=== PATIENT | male | born 1945 | race Caucasian/White ===

== ENCOUNTER 2018-07-18 12:22 | Inpatient (IN) ==
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
[2018-07-18 13:28] LABS: Baso % (Auto) 0.5 % (0.0-2.0); Eos # (Auto) 0.1 th/mm3 (0.0-0.4); Eos % (Auto) 0.9 % (0.0-4.0); Hematocrit 35.6 % (39.0-51.0); Hemoglobin 12.1 gm/dL (13.0-17.0); Lymph # (Auto) 1.3 th/mm3 (1.0-4.8); Lymph % (Auto) 18.2 % (9.0-44.0); Mean Corpuscular Hemoglobin 32.7 pg (27.0-34.0); Mean Corpuscular Volume 96.3 fL (80.0-100.0); Mean Platelet Volume 9.7 fL (7.0-11.0); Mono # (Auto) 0.5 th/mm3 (0.0-0.9); Mono % (Auto) 6.5 % (0.0-8.0); Neut # (Auto) 5.3 th/mm3 (1.8-7.7); Neut % (Auto) 73.9 % (16.0-70.0); Platelet Count 207 th/mm3 (150-450); Red Cell Distribution Width 14.1 % (11.6-17.2); White Blood Count 7.1 th/mm3 (4.0-11.0)
--- NOTE | 2018-07-18 13:34 | CT ---
EXAM DATE: 07/18/2018 1:27 PM EDT AGE/SEX: 89 years / Male INDICATIONS: Altered mental status. CLINICAL DATA: This is the patient's initial encounter. Patient reports that signs and symptoms have been present for 1 day and indicates a pain score of 0/10. MEDICAL/SURGICAL HISTORY: None. None. RADIATION DOSE: 56.35 CTDI (mGy) COMPARISON: No prior exams available for comparison. TECHNIQUE: CT of the head without contrast. Using automated exposure control and adjustment of the mA and/or kV according to patient size, radiation dose was kept as low as reasonably achievable to ob tain optimal diagnostic quality images. DICOM format image data is available electronically for revi ew and comparison. FINDINGS: Cerebrum: Atrophy. Periventricular low attenuation change involving both cerebral hemispheres. The v entricles are normal for age. No evidence of midline shift, mass lesion, hemorrhage or acute infarct ion. No extraaxial fluid collections are seen. Posterior Fossa: The cerebellum and brainstem are intact. The 4th ventricle is midline. The cerebe llopontine angle is unremarkable. Extracranial: The visualized portion of the orbits is intact. Skull: The calvaria is intact. No evidence of skull fracture. CONCLUSION: 1. No acute intracranial abnormality. 2. Atrophy. 3. Chronic small vessel ischemic change. . Electronically signed by: Sammy Valle MD 07/18/2018 1:33 PM EDT
[2018-07-18 13:45] LABS: Anion Gap 12 meq/L (5-15)
[2018-07-18 13:57] LABS: Alanine Aminotransferase 18 U/L (12-78); Albumin 3.8 g/dL (3.4-5.0); Alkaline Phosphatase 65 U/L (45-117); Aspartate Aminotransferase 15 U/L (15-37); Blood Urea Nitrogen 20 mg/dL (7-18); Calcium 9.2 mg/dL (8.5-10.1); Carbon Dioxide 26.5 meq/L (21.0-32.0); Chloride 106 meq/L (98-107); Glomerular Filtration Rate 55 mL/min (>89); Glucose,Random 174 mg/dL (74-106); Sodium 144 meq/L (136-145); Total Protein 7.4 g/dL (6.4-8.2)
[2018-07-18 18:43] LABS: Bilirubin,Urine Negative (Negative); Clarity,Urine Clear (Clear); Color,Urine Yellow (Yellw/Straw); Glucose,Urine (UA) Negative (Negative); Hyaline Casts,Urine 1 /lpf (0-3); Leukocyte Esterase,Urine Negative (Negative); Nitrite,Urine Negative (Negative); Specific Gravity,Urine 1.008 (1.002-1.035)
[2018-07-18 18:48] LABS: Amphetamine Screen,Urine Neg (Neg); Barbiturate Screen,Urine Neg (Neg); Cannabinoid Screen,Urine Neg (Neg); Cocaine Screen,Urine Neg (Neg)
[2018-07-18 19:05] LABS: Opiate Screen,Urine Neg (Neg)
[2018-07-18] MEDS ORDERED: Melatonin 5 MG Tablet PO PRN (21:23)
[2018-07-18] MEDS ORDERED: Aluminum/Magnesium/Simethacone Susp 30 ML UDC PO PRN (21:23)
[2018-07-19] MEDS ORDERED: SEMAGLUTIDE SQ SCH (09:00)
[2018-07-19] MEDS ORDERED: INSULIN DEGLUDEC SQ SCH (09:00)
[2018-07-19 10:25] LABS: Baso % (Auto) 0.4 % (0.0-2.0); Eos # (Auto) 0.1 th/mm3 (0.0-0.4); Eos % (Auto) 1.2 % (0.0-4.0); Hematocrit 37.6 % (39.0-51.0); Hemoglobin 12.8 gm/dL (13.0-17.0); Lymph # (Auto) 2.1 th/mm3 (1.0-4.8); Lymph % (Auto) 32.6 % (9.0-44.0); Mean Corpuscular Hemoglobin 32.7 pg (27.0-34.0); Mean Corpuscular Volume 95.9 fL (80.0-100.0); Mean Platelet Volume 9.8 fL (7.0-11.0); Mono # (Auto) 0.7 th/mm3 (0.0-0.9); Mono % (Auto) 10.5 % (0.0-8.0); Neut # (Auto) 3.6 th/mm3 (1.8-7.7); Neut % (Auto) 55.3 % (16.0-70.0); Platelet Count 213 th/mm3 (150-450); Red Blood Count 3.92 mil/mm3 (4.50-5.90); Red Cell Distribution Width 14.1 % (11.6-17.2); White Blood Count 6.4 th/mm3 (4.0-11.0)
[2018-07-19] MEDS: Carvedilol 6.25 MG Tablet PO SCH (10:27)
[2018-07-19] MEDS: TRIAMCINOLONE ACETONIDE EACH NARE SCH (10:27)
[2018-07-19 10:34] LABS: Calcium 9.9 mg/dL (8.5-10.1); Carbon Dioxide 26.4 meq/L (21.0-32.0); Potassium 3.7 meq/L (3.5-5.1)
[2018-07-19 10:38] LABS: Chol/HDL Ratio 3.11 Ratio; HDL Cholesterol 34.4 mg/dL (40.0-60.0)
[2018-07-19] MEDS ORDERED: Aluminum/Magnesium/Simethacone Susp 30 ML UDC PO PRN (11:03)
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
[2018-07-19 13:09] LABS: Hemoglobin A1c 7.9 % (4.3-6.0)
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
[2018-07-19] MEDS ORDERED: Dextrose 50% in Water 50 ML Vial IV.PUSH PRN (16:24)
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
--- NOTE | 2018-07-19 16:54 | P.DIET ---
Nutritional Evaluation Type of nutrition evaluation: initial Nutrition consult regarding: Diet Evaluation Nutrition screening: [facility] [place] Screening comments: 07/18/18 [facility] [place] Poor PO Intake Subjective Oral Diet Tolerance Assessment Indicates: Poor dentition Subjective Comments: Pt visited before dinner today. Pt is edentulous on his upper mouth and says he doesnt know where his denture is. Pt's lower mouth w/missing teeth. Pt denies any problem chewing and says, "I'm here aren't I"? Pt receptive to receiving an oral nutritional supplement and prefers chocolate flavor. Objective - Diagnosis Dementia w/Behavioral Disturbances - Objective Body Mass Index: 20.0 [place] body weight: 78.2 kg % IBW: 83 Body Weight Used for Calculations: Actual Energy Needs - Lower Range (kCal/kg): 33 Energy Needs - Upper Range (kCal/kg): 38 Lower Limit kCal/kg (kCals): 2,145 Upper Limit kCal/kg (kCals): 2,470 Lower Limit Protein Factor (Grams per Kg): 1.2 Upper Limit Protein Factor (Grams per Kg): 1.5 Lower Protein Needs (Protein): 78 Upper Protein Needs (Protein): 98 Fluid Factor (ml/kg): 33 Estimated Fluid Needs (ml): 2,145 Dietitian Reviewed in Medical Record: Current diet, Curent medications, Intake & Output, Labs, Medical history Diet Order: 1800ADA Oral Diet Intake Amount: Fair 50-75% Objective Comments: PMH Includes: Dementia, DM, CAD, s/p CABG, CVA, Dyslipidemia Meds Include: Glucophage, Lipitor, Coreg, Vasotec, Atarax, Mobic, Protonix Assessment Assessment: Pt is at nutritional risk rt/ poor po intake. PT w/o% po intake for breakfast today and 100% po for lunch. Rec 2200ADA diet. Send Glucerna Shakes TID to offer 220 kcal and 10g Protein per serving. Monitor diet tolerance. Labs reviewed. Dietitian will follow. Recommendations: 1. Rec 2200ADA diet 2. Send Glucerna Shakes TID 3. Dietitian will follow Dietitian to Monitor: Lab values, Supplement acceptance, Intake & Output, Diet tolerance, Weight change, PO Intake, Medical course
[2018-07-19] MEDS: Insulin NovoLOG Aspart Correctional Sugar Inj SQ SCH ×2 (18:39→21:46)
[2018-07-19] MEDS: Meloxicam 7.5 MG Tablet PO SCH (20:59)
[2018-07-19] MEDS: Lactic Acid (Ammonium Lactate) 12% Lotion 225 GM Bottle TOPICAL SCH (21:00)
--- NOTE | 2018-07-20 08:56 | P.TTN ---
- Patient Problems Problems: 1. Discharge planning 2. Medication compliance 3. Knowledge deficit 4. Lack of coping skills - Progress Toward Goals Provider Present: Dr. Paramjit Simmons Provider Input: Patient is new admission Psychiatric Counselors Present: Other Psychiatric Therapist Input: Tiana- Patient is new admission Group Spec/RT/OT/BLANK Present: Adamaris Leon [employer] Group Spec/RT/OT/BLANK Input: Patient is new admission - Documentation Teaching Recipient: Patient
[2018-07-20] MEDS: Insulin NovoLOG Aspart Correctional Sugar Inj SQ SCH ×4 (11:14→21:14)
[2018-07-20] MEDS: Lactic Acid (Ammonium Lactate) 12% Lotion 225 GM Bottle TOPICAL SCH ×2 (11:16→21:14)
[2018-07-20] MEDS: Carvedilol 6.25 MG Tablet PO SCH (11:16)
[2018-07-20] MEDS: TRIAMCINOLONE ACETONIDE EACH NARE SCH (11:16)
--- NOTE | 2018-07-20 17:59 | P.PNPSY ---
Subjective Remarks: Patient seen in day room with nurse Hiwot, chart reviewed, patient calm cooperative continues diffusely confused all 4 spheres. At this time no behavioral problems. For now continue treatment Review of Systems All other systems reviewed negative except as stated in HPI Mental Status Examination Appearance: Disheveled Consciousness: Alert Orientation: Person, Place (Hospital) Motor Activity: Normal gait Speech: Unremarkable Language: Other (R[place]) Fund of Knowledge: Inadequate Attention and Concentration: Inadequate Memory: Impaired Mood: Irritable, Other (Dysphoric) Affect: Irritable, Other (Dysphoric) Thought Process & Associations: Tangential (In setting of dementia) Thought Content: Bizarre thinking Hallucination Type: None Delusion Type: Paranoid Suicidal Ideation: No Suicidal Plan: No Suicidal Intention: No Homicidal Ideation: No Homicidal Plan: No Homicidal Intention: No Insight: Poor Judgment: Poor Assessment and Plan - Assessment (1) Alzheimer's disease with late onset Code(s): G30.1 - Alzheimer's disease with late onset; F02.80 - Dementia in other diseases classified elsewhere without behavioral disturbance Status: Acute (2) Dementia in other diseases classified elsewhere with behavioral disturbance Code(s): F02.81 - Dementia in other diseases classified elsewhere with behavioral disturbance Status: Acute - Plan Plan: Patient continues diffusely confused and demented, though no behavior problems noted at this time Justification for Continued Inpatient Stay: At this time patient would decompensate a place to a lower level of care Discharge Planning: To be determined
[2018-07-20] MEDS: Meloxicam 7.5 MG Tablet PO SCH (21:13)
[2018-07-21] MEDS ORDERED: Sugammadex Inj 200 MG/2 ML Vial IV.PUSH ONE (08:21)
[2018-07-21] MEDS ORDERED: Ketamine Inj 50 MG/5 ML Syringe IV.PUSH ONE (08:22)
[2018-07-21] MEDS ORDERED: fentaNYL Citrate Inj 100 MCG/2 ML Ampul ONE (11:13)
[2018-07-21] MEDS: Insulin NovoLOG Aspart Correctional Sugar Inj SQ SCH ×4 (11:14→20:59)
[2018-07-21] MEDS: Carvedilol 6.25 MG Tablet PO SCH (11:17)
[2018-07-21] MEDS: TRIAMCINOLONE ACETONIDE EACH NARE SCH (11:18)
[2018-07-21] MEDS: Lactic Acid (Ammonium Lactate) 12% Lotion 225 GM Bottle TOPICAL SCH ×2 (11:18→20:58)
--- NOTE | 2018-07-21 16:42 | P.PNPSY ---
Subjective Remarks: Reviewed electronic medical records and discussed case with staff. Follow-up was conducted in the hallway. Patient reports that the "law brought me over here". He is very agitated and abrasive with staff. He states, "I do not know why I am here, this is stupid, I do not need to be here". Mental Status Examination Appearance: Disheveled Consciousness: Alert Orientation: Person, Place (Hospital) Motor Activity: Normal gait Speech: Unremarkable Language: Other (Rambling) Fund of Knowledge: Inadequate Attention and Concentration: Inadequate Memory: Impaired Mood: Irritable, Other (Dysphoric) Affect: Irritable, Other (Dysphoric) Thought Process & Associations: Tangential (In setting of dementia) Thought Content: Bizarre thinking Hallucination Type: None Delusion Type: Paranoid Suicidal Ideation: No Suicidal Plan: No Suicidal Intention: No Homicidal Ideation: No Homicidal Plan: No Homicidal Intention: No Insight: Poor Judgment: Poor Assessment and Plan - Assessment (1) Dementia in other diseases classified elsewhere with behavioral disturbance Code(s): F02.81 - Dementia in other diseases classified elsewhere with behavioral disturbance Status: Acute - Plan Plan: Continue with current treatment plan. Patient continues to be grossly confused and irritable. Justification for Continued Inpatient Stay: Moving this patient to a less restrictive environment would likely result in decompensation.
[2018-07-21] MEDS: Meloxicam 7.5 MG Tablet PO SCH (20:59)
[2018-07-22] MEDS: Insulin NovoLOG Aspart Correctional Sugar Inj SQ SCH ×4 (08:57→22:00)
[2018-07-22] MEDS: Lactic Acid (Ammonium Lactate) 12% Lotion 225 GM Bottle TOPICAL SCH ×2 (08:59→21:00)
[2018-07-22] MEDS: Carvedilol 6.25 MG Tablet PO SCH (08:59)
[2018-07-22] MEDS: TRIAMCINOLONE ACETONIDE EACH NARE SCH (12:09)
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
[2018-07-22] MEDS: Meloxicam 7.5 MG Tablet PO SCH (20:59)
[2018-07-22] MEDS: QUEtiapine 25 MG Tablet PO SCH (20:59)
[2018-07-23] MEDS: Insulin NovoLOG Aspart Correctional Sugar Inj SQ SCH ×4 (07:47→20:47)
[2018-07-23] MEDS: Carvedilol 6.25 MG Tablet PO SCH (08:46)
[2018-07-23] MEDS: TRIAMCINOLONE ACETONIDE EACH NARE SCH (08:46)
[2018-07-23] MEDS: Lactic Acid (Ammonium Lactate) 12% Lotion 225 GM Bottle TOPICAL SCH ×2 (08:47→20:32)
--- NOTE | 2018-07-23 15:29 | P.PNPSY ---
Subjective Remarks: The patient was seen today for psychiatric reevaluation. The patient was found sitting in the jo, a little bit irritable, disorganized, he is very hard of hearing which made communication quite difficult. But he reports feeling okay, denies anhedonia, denies hopelessness, denies helplessness, he denies suicidal and homicidal ideation, he denies visual and auditory hallucinations. He has episodes of agitation and becoming loud in the unit, but he is usually Sara escalated. Compliant medications, no significant side effects. Mental Status Examination Appearance: Disheveled Consciousness: Alert Orientation: Person, Place (Hospital) Motor Activity: Normal gait Speech: Unremarkable Language: Other (Rambling) Fund of Knowledge: Inadequate Attention and Concentration: Inadequate Memory: Impaired Mood: Irritable, Other (Dysphoric) Affect: Irritable, Other (Dysphoric) Thought Process & Associations: Tangential (In setting of dementia) Thought Content: Bizarre thinking Hallucination Type: None Delusion Type: Paranoid Suicidal Ideation: No Suicidal Plan: No Suicidal Intention: No Homicidal Ideation: No Homicidal Plan: No Homicidal Intention: No Insight: Poor Judgment: Poor Assessment and Plan - Assessment (1) Alzheimer's disease with late onset Code(s): G30.1 - Alzheimer's disease with late onset; F02.80 - Dementia in other diseases classified elsewhere without behavioral disturbance Status: Acute (2) Dementia in other diseases classified elsewhere with behavioral disturbance Code(s): F02.81 - Dementia in other diseases classified elsewhere with behavioral disturbance Status: Acute - Plan Plan: Continue current psychotropic regimen. Justification for Continued Inpatient Stay: Patient is still irritable, with episodic agitation, responding adequately to psychotropics. Continue psychiatric hospitalization for stabilization
[2018-07-23] MEDS: Meloxicam 7.5 MG Tablet PO SCH (20:32)
[2018-07-23] MEDS: QUEtiapine 25 MG Tablet PO SCH (20:32)
[2018-07-24] MEDS: Insulin NovoLOG Aspart Correctional Sugar Inj SQ SCH ×4 (07:54→21:40)
[2018-07-24] MEDS: Carvedilol 6.25 MG Tablet PO SCH (09:26)
[2018-07-24] MEDS: TRIAMCINOLONE ACETONIDE EACH NARE SCH (09:27)
[2018-07-24] MEDS: Lactic Acid (Ammonium Lactate) 12% Lotion 225 GM Bottle TOPICAL SCH ×2 (09:27→21:40)
--- NOTE | 2018-07-24 11:47 | P.PNPSY ---
Subjective Remarks: Pt seen and discussed with staff. Chart reviewed. He has been agitated and argumentative with RNs during medication administration. He is irritable and angry and confused. He is easily agitated. No SI/HI Mental Status Examination Appearance: Disheveled Consciousness: Alert Orientation: Person, Place (Hospital) Motor Activity: Normal gait Speech: Unremarkable Language: Other (Rambling) Fund of Knowledge: Inadequate Attention and Concentration: Inadequate Memory: Impaired Mood: Angry, Irritable Affect: Irritable Thought Process & Associations: Tangential (In setting of dementia) Thought Content: Bizarre thinking Hallucination Type: None Delusion Type: Paranoid Suicidal Ideation: No Suicidal Plan: No Suicidal Intention: No Homicidal Ideation: No Homicidal Plan: No Homicidal Intention: No Insight: Poor Judgment: Poor Assessment and Plan - Assessment (1) Alzheimer's disease with late onset Code(s): G30.1 - Alzheimer's disease with late onset; F02.80 - Dementia in other diseases classified elsewhere without behavioral disturbance Status: Acute (2) Dementia in other diseases classified elsewhere with behavioral disturbance Code(s): F02.81 - Dementia in other diseases classified elsewhere with behavioral disturbance Status: Acute - Plan Plan: Continue current tx plan Justification for Continued Inpatient Stay: agitation
[2018-07-24] MEDS: QUEtiapine 25 MG Tablet PO SCH (21:00)
[2018-07-24] MEDS: Meloxicam 7.5 MG Tablet PO SCH (21:00)
--- NOTE | 2018-07-25 09:24 | P.PNPSY ---
Subjective Remarks: Medical record reviewed and discussed with nursing staff. PACO Mi and I met with patient in the Day Room. He is eating breakfast. He is very [place]. He is confused and unable to focus. Nursing reports no behavioral concerns . He appears to take direction and is cooperative at this time. Review of Systems All other systems reviewed negative except as stated in HPI Mental Status Examination Appearance: Disheveled Consciousness: Alert Orientation: Person, Place (Hospital) Motor Activity: Normal gait Speech: Unremarkable Language: Other (Rambling) Fund of Knowledge: Inadequate Attention and Concentration: Inadequate Memory: Impaired Mood: Angry, Irritable Affect: Irritable Thought Process & Associations: Tangential (In setting of dementia) Thought Content: Bizarre thinking Hallucination Type: None Delusion Type: Paranoid Suicidal Ideation: No Suicidal Plan: No Suicidal Intention: No Homicidal Ideation: No Homicidal Plan: No Homicidal Intention: No Insight: Poor Judgment: Poor Assessment and Plan - Assessment (1) Alzheimer's disease with late onset Code(s): G30.1 - Alzheimer's disease with late onset; F02.80 - Dementia in other diseases classified elsewhere without behavioral disturbance Status: Acute (2) Dementia in other diseases classified elsewhere with behavioral disturbance Code(s): F02.81 - Dementia in other diseases classified elsewhere with behavioral disturbance Status: Acute - Plan Plan: Continue current tx plan Justification for Continued Inpatient Stay: Moving patient to a less restrictive environment may result in his decompensation.
[2018-07-25] MEDS: Insulin NovoLOG Aspart Correctional Sugar Inj SQ SCH ×4 (11:40→20:46)
[2018-07-25] MEDS: Lactic Acid (Ammonium Lactate) 12% Lotion 225 GM Bottle TOPICAL SCH ×2 (11:40→20:14)
[2018-07-25] MEDS: Carvedilol 6.25 MG Tablet PO SCH (11:40)
[2018-07-25] MEDS: TRIAMCINOLONE ACETONIDE EACH NARE SCH (11:40)
[2018-07-25] MEDS: Meloxicam 7.5 MG Tablet PO SCH (20:14)
[2018-07-25] MEDS: QUEtiapine 25 MG Tablet PO SCH (20:14)
[2018-07-26] MEDS: Insulin NovoLOG Aspart Correctional Sugar Inj SQ SCH ×4 (09:38→21:29)
[2018-07-26] MEDS: Lactic Acid (Ammonium Lactate) 12% Lotion 225 GM Bottle TOPICAL SCH ×2 (09:39→21:02)
[2018-07-26] MEDS: TRIAMCINOLONE ACETONIDE EACH NARE SCH (09:39)
[2018-07-26] MEDS: Carvedilol 6.25 MG Tablet PO SCH (09:39)
--- NOTE | 2018-07-26 12:42 | P.PNPSY ---
Subjective Remarks: Reviewed electronic medical records and discussed case with staff. Follow-up was conducted in the day room. Staff reports that patient is confused and would still like to go home. His blood glucose levels improved today. Been compliant with his Seroquel. He reports that he has been sleeping good and his he has had a good appetite. He states "I wish I was home with my ". He also claims to "always be in a good mood". Review of Systems All other systems reviewed negative except as stated in HPI Mental Status Examination Appearance: Disheveled Consciousness: Alert Orientation: Person, Place (Hospital) Motor Activity: Normal gait Speech: Unremarkable Language: Other (Rambling) Fund of Knowledge: Inadequate Attention and Concentration: Inadequate Memory: Impaired Mood: Angry, Irritable Affect: Irritable Thought Process & Associations: Tangential (In setting of dementia) Thought Content: Bizarre thinking Hallucination Type: None Delusion Type: Paranoid Suicidal Ideation: No Suicidal Plan: No Suicidal Intention: No Homicidal Ideation: No Homicidal Plan: No Homicidal Intention: No Insight: Poor Judgment: Poor Assessment and Plan - Assessment (1) Dementia in other diseases classified elsewhere with behavioral disturbance Code(s): F02.81 - Dementia in other diseases classified elsewhere with behavioral disturbance Status: Acute - Plan Plan: Patient will be reevaluated Thursday by the attending psychiatrist. Continue with current treatment plan. Justification for Continued Inpatient Stay: Moving this patient to a less restrictive environment would likely result in decompensation.
--- NOTE | 2018-07-26 14:45 | P.DIET ---
Nutritional Evaluation Type of nutrition evaluation: follow-up Nutrition consult regarding: Diet Evaluation [place] [facility] [place] [facility] [place] Intake Subjective Oral Diet Tolerance Assessment Indicates: Poor dentition Subjective Comments: Pt visited during lunch today. Food preferences updated. Brought forward from prevoius note: Pt visited before dinner today. Pt is edentulous on his upper mouth and says he doesnt know where his denture is. Pt' s lower mouth w/missing teeth. Pt denies any problem chewing and says, "I'm here aren't I"? Pt receptive to receiving an oral nutritional supplement and prefers chocolate flavor. Objective - Diagnosis Dementia w/Behavioral Disturbances - Objective [place] body weight: 78.2 kg % IBW: 83 Body Weight Used for Calculations: Actual Energy Needs - Lower Range (kCal/kg): 33 Energy Needs - Upper Range (kCal/kg): 38 Lower Limit kCal/kg (kCals): 2,145 Upper Limit kCal/kg (kCals): 2,470 Lower Limit Protein Factor (Grams per Kg): 1.2 Upper Limit Protein Factor (Grams per Kg): 1.5 Lower Protein Needs (Protein): 78 Upper Protein Needs (Protein): 98 Fluid Factor (ml/kg): 33 Estimated Fluid Needs (ml): 2,145 Dietitian Reviewed in Medical Record: Current diet, Curent medications, Intake & Output, Labs, Medical history Diet Order: 1800ADA Oral Diet Intake Amount: Good 75-90% Objective Comments: PMH Includes: Dementia, DM, CAD, s/p CABG, CVA, Dyslipidemia POC Glucose 197 Meds Include: Glucophage, Novolog SSI, Lipitor, Coreg, Catapres, Vasotec, Atarax , Mobic, Protonix, Seroquel Feeding - Current PO Supplement Current Supplement: Glucerna Shake Current Frequency of Supplement: Three times a day Current kCals Provided by Supplement: 220 Current Protein Provided by Supplement: 10 Assessment Assessment: Nutrition Follow-[place] [facility] po intake. Pt tolerating diet w/Adequate PO intake 50% or greater for meals. Rec 2200ADA diet. Continue Glucerna Shakes TID. Labs reviewed-monitor glucose. Wt changes noted. Dietitian following. Recommendations: 1. Rec 2200ADA diet 2. Continue Glucerna Shakes TID 3. Dietitian will follow Dietitian to Monitor: Lab values, Supplement acceptance, Intake & Output, Weight change, PO Intake, Medical course
[2018-07-26] MEDS: QUEtiapine 25 MG Tablet PO SCH (20:58)
[2018-07-26] MEDS: Meloxicam 7.5 MG Tablet PO SCH (20:59)
--- NOTE | 2018-07-27 03:03 | XR ---
EXAM DATE: 07/27/2018 2:57 AM EDT AGE/SEX: 72 years / Male INDICATIONS: Trauma. Patient fell in hir room tonight. CLINICAL DATA: This is the patient's initial encounter. Patient reports that signs and symptoms have been present for 1 day and indicates a pain score of Nonresponsive. MEDICAL/SURGICAL HISTORY: Non-responsive. Non-responsive. COMPARISON: No prior exams available for comparison. FINDINGS: 2 views of left hip. Bone alignment within normal limits. No evidence of fracture. No evidence of indy nt narrowing. Diffuse arterial calcification. CONCLUSION: No evidence of fracture. Electronically signed by: Wes Joe MD 07/27/2018 3:02 AM EDT
--- NOTE | 2018-07-27 03:04 | XR ---
EXAM DATE: 07/27/2018 2:58 AM EDT AGE/SEX: 72 years / Male INDICATIONS: Trauma. CLINICAL DATA: This is the patient's initial encounter. Patient reports that signs and symptoms have been present for 1 day and indicates a pain score of Nonresponsive. MEDICAL/SURGICAL HISTORY: None. None. COMPARISON: [facility] [place], HIP LEFT 2V, 07/27/2018. . FINDINGS: 2 views right hip. Minimal osteophytes. Alignment within normal limits. No evidence fracture. No evid ence of joint narrowing. Diffuse arterial calcification. CONCLUSION: No evidence of fracture. Electronically signed by: Wes Joe MD 07/27/2018 3:03 AM EDT
[2018-07-27] MEDS: Insulin NovoLOG Aspart Correctional Sugar Inj SQ SCH ×4 (08:32→21:00)
[2018-07-27] MEDS: Carvedilol 6.25 MG Tablet PO SCH ×3 (08:36→20:51)
[2018-07-27] MEDS: TRIAMCINOLONE ACETONIDE EACH NARE SCH (08:36)
[2018-07-27] MEDS: Lactic Acid (Ammonium Lactate) 12% Lotion 225 GM Bottle TOPICAL SCH ×2 (08:38→20:35)
--- NOTE | 2018-07-27 09:12 | CT ---
EXAM DATE: 07/27/2018 9:08 AM EDT AGE/SEX: 72 years / Male INDICATIONS: Trauma. Fell again this morning. Head injury. Multiple falls recently. CLINICAL DATA: This is the patient's subsequent encounter. Patient reports that signs and symptoms h ave been present for 1 day and indicates a pain score of 0/10. MEDICAL/SURGICAL HISTORY: Cerebrovascular disease. Dementia. Diabetes. CABG. RADIATION DOSE: 56.35 CTDI (mGy) COMPARISON: [facility] [place], [place] HEAD W/O CONTRAST, 07/18/2018. . TECHNIQUE: CT of the head without contrast. Using automated exposure control and adjustment of the mA and/or kV according to patient size, radiation dose was kept as low as reasonably achievable to ob tain optimal diagnostic quality images. DICOM format image data is available electronically for revi ew and comparison. FINDINGS: Cerebrum: The ventricles are normal for age. No evidence of midline shift, mass lesion, hemorrhage or acute infarction. No extraaxial fluid collections are seen. Posterior Fossa: The cerebellum and brainstem are intact. The 4th ventricle is midline. The cerebe llopontine angle is unremarkable. Extracranial: The visualized portion of the orbits is intact. Skull: The calvaria is intact. No evidence of skull fracture. CONCLUSION: 1. No acute intracranial abnormalities. . Electronically signed by: Giuseppe Schilling MD 07/27/2018 9:11 AM EDT
--- NOTE | 2018-07-27 09:22 | XR ---
EXAM DATE: 07/27/2018 9:15 AM EDT AGE/SEX: 72 years / Male INDICATIONS: Right shoulder pain. Patient fell. CLINICAL DATA: This is the patient's subsequent encounter. Patient reports that signs and symptoms h ave been present for 2 days and indicates a pain score of 4/10. MEDICAL/SURGICAL HISTORY: . Coronary artery disease. Cerebral vascular accident. Dementia. Diab etes. Dyslipidemia. CABG. COMPARISON: No prior exams available for comparison. FINDINGS: Advanced osteoarthritis of the right shoulder joint. Moderate osteoarthritis of the AC joint. Probabl e loose bodies present in the inferior shoulder joint. There is deformity of the humeral neck probably from a remote fracture. No acute fracture line is see n. CONCLUSION: Humeral neck deformity presumably from a remote fracture. However cannot completely exclude acute fra cture. If clinical findings suggest fracture would recommend further evaluation with computed tomogra phy. Electronically signed by: Giuseppe Schilling MD 07/27/2018 9:20 AM EDT
--- NOTE | 2018-07-27 10:22 | P.PN ---
Subjective Interval history: 72 years old male [facility] reconsulted for management of DM- elevated readings- BS reviewed- 259, 278, 360 patient is seen - awake and alert, hard of hearing, oriented to person and "[place]" no complains of dizziness or headaches, or chest pains he is up and ambulating, very interactive, no dizziness states sugars will be better - if "they give me the right food Physical Exam Vital signs: Vital Signs 07/26/18 18:25 07/27/18 04:19 07/27/18 04:30 Temperature 98.1 F 97.6 F 97.2 F L Pulse Rate 95 H 100 H 92 H Respiratory Rate 18 20 20 Blood Pressure 141/78 H 174/87 H 118/84 Pulse Oximetry 99 96 93 L 07/27/18 05:12 07/27/18 06:12 07/27/18 08:06 Temperature 97.2 F L Pulse Rate 91 H 104 H 87 Respiratory Rate 18 20 16 Blood Pressure 137/73 142/90 H 159/108 H Pulse Oximetry 96 94 L 07/27/18 08:44 Temperature Pulse Rate 113 H Respiratory Rate 16 Blood Pressure 109/63 Pulse Oximetry 98 Intake & Output 07/26/18 07/27/18 07/27/18 18:59 06:59 18:59 Intake Total 840 / 840 Balance 840 / 840 Intake: Oral 840 / 840 Other: # Voids 3 Date of Last Bowel Movement 07/22/18 Narrative: GENERAL: WDWN male patient, Awake and alert. Oriented to self only. "I'm in [place]" cooperative on exam today speech clear, Hard of hearing Warm and dry. Bilateral LE venous stasis changes with dry flaky skin. Atraumatic. Normocephalic. Pupils equal and round. No scleral icterus. No injection or drainage. No nasal bleeding or discharge. Mucous membranes pink and moist. neck supple CARDIOVASCULAR: irregularly irregular rhythm on exam, HR- low 100s, No murmur appreciated. RESPIRATORY: No accessory muscle use. Clear to auscultation. Breath sounds equal bilaterally. GASTROINTESTINAL: Abdomen soft, non-tender, nondistended. Hepatic and splenic margins not palpable. MUSCULOSKELETAL: Extremities without clubbing, cyanosis, or edema. No obvious deformities. NEUROLOGICAL: Awake and alert. No obvious cranial nerve deficits. Motor grossly within normal limits. Able to move all extremities spontaneously. Normal speech. gait steady PSYCHIATRIC: Calm and cooperative; insight and judgment poor. Results - Labs CBC & Chem 7: 07/19/18 09:04 07/19/18 09:04 Laboratory Results - last 24 hr 07/26/18 07/26/18 07/27/18 16:46 19:53 06:16 POC Glucose 278 H 289 H 289 H - Imaging Impressions Head CT 07/27/18 00:00 CONCLUSION: 1. No acute intracranial abnormalities. . Shoulder X-Ray 07/27/18 00:00 CONCLUSION: Humeral neck deformity presumably from a remote fracture. However cannot completely exclude acute fracture. If clinical findings suggest fracture would recommend further evaluation with computed tomography. Hip X-Ray 07/27/18 02:31 CONCLUSION: No evidence of fracture. Hip X-Ray 07/27/18 02:31 CONCLUSION: No evidence of fracture. Assessment and Plan - Plan Nasim Friedman patient with dementia, hx of CVAs, CAD s/p CABG, DM, dyslipidemia and diabetes admitted to inpatient psychiatry under [place] Act: [facility] reconsulted for DM managment Dementia with behavioral disturbance CT Head neg for acute intracranial process -Management per psychiatric team -fall precautions- up and ambulaing- steadily, cooperative on exam - very hard of hearing though -PT/OT eval/tx Diabetes Mellitus, type 2 insulin requiring (as OP on Tresiba + Metformin) HgbA1c 7.9 -heart healthy diabetic diet -Continued on home Metformin 1000mg po BID -Patient on Tresiba 14u daily - not available here -will start him on Insulin 70/30 8 units bid and record -accuchecks and ISS - get dietitian consult for recommendation - Irregularly irregular rhythm- on exam - on exam sounds like in ATRIAL FIBRILLATION on exam Hypertension, chronic CAD s/p CABG - get a 12 lead EKG now - = patient has no cardiac complaints -Continue patient on home medications Coreg 6.25mg daily- increase to bid - continue Vasotec 5mg po daily -Continue on ASA daily - consider adding newer OAC if confirmed a fib - -Clonidine prn with parameters Hyperlipidemia -Continue patient statin therapy daily Hx of CVAs -Continue on Aspirin daily Bilateral shoulder pain, chronic- no complains Probable bilateral shoulder OA -Continue on Mobic 7.5mg daily GERD -PPI DVT prophylaxis -patient is ambulatory [facility] will continue to ff patient and ff blood sugar and adjust regimen Code Status: Full Discussed Condition With: patient, nursing staff
--- NOTE | 2018-07-27 11:44 | P.PNPSY ---
Subjective Remarks: Patient seen and examined with nurse in coverage for Dr. Simmons. Chart reviewed. Case discussed with nursing staff. I was notified early this morning is the physician on-call that the patient had taken a fall and may have hit his head and possibly right shoulder. I ordered stat head and shoulder imaging and also requested PT reevaluate the patient as I was told that he had fallen overnight as well and also requested further hospitalist consultation as nurse reported patient felt dizzy when hyperglycemic. Patient has now been placed with a walker by PT and his neuro checks have been unremarkable per RN. I find the patient in bed. He is hard of hearing, limiting the interview. He denies any complaints of pain. He is oriented to person and [place] only. No reported medication side effects. No other physical complaints. Vital Signs Temp Pulse Resp BP Pulse Ox 07/27/18 09:35 99 H 16 110/62 98 07/27/18 08:44 113 H 16 109/63 98 07/27/18 08:06 87 16 159/108 H 07/27/18 06:12 104 H 20 142/90 H 94 L 07/27/18 05:12 97.2 F L 91 H 18 137/73 96 07/27/18 04:30 97.2 F L 92 H 20 118/84 93 L 07/27/18 04:19 97.6 F 100 H 20 174/87 H 96 07/26/18 18:25 98.1 F 95 H 18 141/78 H 99 Intake and Output 07/26/18 07/27/18 07/27/18 22:59 06:59 14:59 Intake Total 840 / 840 Balance 840 / 840 Intake: Oral 840 / 840 Other: # Voids 3 Laboratory Results - last 24 hr 07/26/18 07/26/18 07/27/18 16:46 19:53 06:16 POC Glucose 278 H 289 H 289 H 07/27/18 10:46 POC Glucose 298 H Labs reviewed. Impressions Head CT 07/27/18 00:00 CONCLUSION: 1. No acute intracranial abnormalities. Shoulder X-Ray 07/27/18 00:00 CONCLUSION: Humeral neck deformity presumably from a remote fracture. However cannot completely exclude acute fracture. If clinical findings suggest fracture would recommend further evaluation with computed tomography. Hip X-Ray 07/27/18 02:31 CONCLUSION: No evidence of fracture. Hip X-Ray 07/27/18 02:31 CONCLUSION: No evidence of fracture. Review of Systems unobtainable due to mental status Mental Status Examination Appearance: Disheveled Consciousness: Alert Orientation: Person, Place ([place]) Motor Activity: Other (No motor abnormalities noted) Speech: Unremarkable Language: Other (Rambling) Fund of Knowledge: Inadequate Attention and Concentration: Inadequate Memory: Impaired Mood: Other (Calm) Affect: Euthymic Thought Process & Associations: Tangential (In setting of dementia) Thought Content: Other (Poverty of thought) Hallucination Type: None Delusion Type: None Suicidal Ideation: No Homicidal Ideation: No Insight: Poor Judgment: Poor Assessment and Plan - Assessment (1) Alzheimer's disease with late onset Code(s): G30.1 - Alzheimer's disease with late onset; F02.80 - Dementia in other diseases classified elsewhere without behavioral disturbance Status: Acute (2) Dementia in other diseases classified elsewhere with behavioral disturbance Code(s): F02.81 - Dementia in other diseases classified elsewhere with behavioral disturbance Status: Acute - Plan Plan: Continue Seroquel as ordered. Hospitalist and PT consultation as well as imaging as noted above. I will order follow up shoulder CT to assess for acute versus remote fracture as recommended by radiologist. Continue to monitor on inpatient unit. Continue other care as ordered. Justification for Continued Inpatient Stay: Risk for decompensation in less restrictive environment Discharge Planning: Per Dr. Simmons.
[2018-07-27] MEDS: QUEtiapine 25 MG Tablet PO SCH (20:35)
[2018-07-27] MEDS: Meloxicam 7.5 MG Tablet PO SCH (20:36)
--- NOTE | 2018-07-27 22:42 | ECG ---
Date Performed: 07/27/2018 Time Performed: 13:30:09 PTAGE: 72 years EKG: ATRIAL FIBRILLATION MODERATE INTRAVENTRICULAR CONDUCTION DELAY NONSPECIFIC T-WAVE ABNORMALI TY ABNORMAL RHYTHM ECG NO PREVIOUS TRACING DOCTOR: Liam Brush Interpretating Date/Time 07/27/2018 22:41:27
--- NOTE | 2018-07-27 23:20 | CT ---
EXAM DATE: 07/27/2018 9:20 PM EDT AGE/SEX: 72 years / Male INDICATIONS: Abnormal x-ray; fall. CLINICAL DATA: This is the patient's initial encounter. Patient reports that signs and symptoms have been present for 1 day and indicates a pain score of 5/10. MEDICAL/SURGICAL HISTORY: Cardiovascular disease. CABG. RADIATION DOSE: 23.20 CTDI (mGy) COMPARISON: No prior exams available for comparison. TECHNIQUE: Multiple contiguous axial images were acquired using a multirow detector CT scanner witho ut contrast. Multiplanar reconstruction was performed in the sagittal and coronal planes. Using aut omated exposure control and adjustment of the mA and/or kV according to patient size, radiation dose was kept as low as reasonably achievable to obtain optimal diagnostic quality images. DICOM format i mage data is available electronically for review and comparison. FINDINGS: There is a fracture the proximal right humerus involving the surgical neck. The appearance of the fra cture suggests that this is likely subacute to chronic. There is some likely central bone bridging at the fracture site measuring 2 cm in medial to lateral dimension and 2 cm in anterior to posterior di mension. Fracture line remains visible at the peripheral margins of the fracture. Impaction is noted with 8 mm bony overlap. Mild posterior angulation of the distal fragment and mild lateral angulation of the distal fragment. Large glenohumeral joint osteophytes. Moderate severity glenohumeral joint narrowing. Possible intra- articular osteochondral bodies in the axillary recess of the joint. Mild hypertrophic change of the acromioclavicular joint. Acromial shape is type I. Small glenohumeral joint effusion. CONCLUSION: 1. Proximal humerus fracture, likely subacute to chronic with central bone bridging. 2. Severe arthritic findings of the glenohumeral joint. Electronically signed by: Wes Joe MD 07/27/2018 11:18 PM EDT
--- NOTE | 2018-07-28 08:07 | P.PN ---
Subjective Interval history: Patient doing well overnight. Reports that he has been following his diabetic diet, and voiding/stooling. Patient denies chest pain or shortness of breath. No overnight concerns per nursing. Physical Exam Vital signs: Vital Signs 07/27/18 08:44 07/27/18 09:35 07/27/18 13:35 Temperature 98.2 F Pulse Rate 113 H 99 H 73 Respiratory Rate 16 16 16 Blood Pressure 109/63 110/62 143/67 H Pulse Oximetry 98 98 98 07/27/18 17:07 07/27/18 18:45 07/28/18 06:00 Temperature 97.6 F 97.6 F 97.8 F Pulse Rate 89 89 98 H Respiratory Rate 18 18 18 Blood Pressure 141/80 H 141/80 H 139/72 Pulse Oximetry 99 94 L Intake & Output 07/27/18 07/28/18 07/28/18 18:59 06:59 18:59 Intake Total 1200 / 1200 340 / 340 Balance 1200 / 1200 340 / 340 Intake: Oral 1200 / 1200 240 / 240 Oral Supplement 100 / 100 Other: # Voids 3 2 # Bowel Movements 1 Narrative: GENERAL: well nourished male, in NAD, sitting comfortably in bed HEENT: PERRLA, MOM, poor dentition CARDIOVASCULAR: irregularly irregular rhythm on exam, no M/R/G RESPIRATORY: No accessory muscle use. Clear to auscultation. Breath sounds equal bilaterally. GASTROINTESTINAL: Abdomen soft, non-tender, nondistended. Hepatic and splenic margins not palpable. MUSCULOSKELETAL: Extremities without clubbing, cyanosis, or edema. No obvious deformities. Normal shoulder exam. NEUROLOGICAL: Awake and alert. No obvious cranial nerve deficits. Motor grossly within normal limits. Able to move all extremities spontaneously. Normal speech. gait steady PSYCHIATRIC: Calm and cooperative; insight and judgment poor. AAOx1. Results - Labs CBC & Chem 7: 07/19/18 09:04 07/19/18 09:04 Laboratory Results - last 24 hr 07/27/18 07/27/18 07/27/18 10:46 16:32 19:47 POC Glucose 298 H 212 H 204 H - Imaging Impressions Head CT 07/27/18 00:00 CONCLUSION: 1. No acute intracranial abnormalities. . Shoulder CT 07/27/18 00:00 CONCLUSION: 1. Proximal humerus fracture, likely subacute to chronic with central bone bridging. 2. Severe arthritic findings of the glenohumeral joint. Shoulder X-Ray 07/27/18 00:00 CONCLUSION: Humeral neck deformity presumably from a remote fracture. However cannot completely exclude acute fracture. If clinical findings suggest fracture would recommend further evaluation with computed tomography. Assessment and Plan - Assessment (1) Alzheimer's disease with late onset Code(s): G30.1 - Alzheimer's disease with late onset; F02.80 - Dementia in other diseases classified elsewhere without behavioral disturbance Status: Acute (2) Dementia in other diseases classified elsewhere with behavioral disturbance Code(s): F02.81 - Dementia in other diseases classified elsewhere with behavioral disturbance Status: Acute (3) Hypertension Code(s): I10 - Essential (primary) hypertension Status: Acute (4) Atrial fibrillation Code(s): I48.91 - Unspecified atrial fibrillation Status: Acute (5) Diabetes Code(s): E11.9 - Type 2 diabetes mellitus without complications Status: Acute - Plan This is a 72 y/o CM with PMhx of CVA, CAD s/p CABG, DM, and HLD admitted to inpatient psychiatry under [facility], [facility] reconsulted for DM management, HD#11 1. Dementia with Behavioral Disturbance -CT Head neg for acute intracranial process -Management per psychiatric team -Fall precautions, PT/OT 2. Diabetes Mellitus, Type II (as OP on Tresiba + Metformin) -HgbA1c 7.9 -Continue home Metformin 1000mg PO BID -Increase Insulin 70/30 to 12U BID, BS 204, 298, 289 -Accucheck AC/HS 3. AFib/Hypertension/CAD s/p CABG -EKG with A. Fib -Continue patient on home medications Coreg 6.25mg BID -continue Vasotec 5mg po daily -Continue on ASA daily (declines OAC) -Clonidine prn with parameters 4. Hyperlipidemia -Continue statin 5. Hx of CVAs -Continue on Aspirin daily 6. Right shoulder pain, subacute fx? -Ortho consulted by Psych team -Cont. Mobic Right shoulder CT: 1. Proximal humerus fracture, likely subacute to chronic with central bone bridging. 2. Severe arthritic findings of the glenohumeral joint. Right Shoulder XR: CONCLUSION: Humeral neck deformity presumably from a remote fracture. However cannot completely exclude acute fracture. If clinical findings suggest fracture would recommend further evaluation with computed tomography. 7. GERD -Cont. PPI 8. DVT prophylaxis: ambulatory 9. Dispo: adjust insulin pending BS Code Status: full Discussed Condition With: patient, RN
[2018-07-28] MEDS: Insulin NovoLOG Aspart Correctional Sugar Inj SQ SCH ×4 (09:23→20:56)
[2018-07-28] MEDS: Carvedilol 6.25 MG Tablet PO SCH ×2 (09:24→20:42)
[2018-07-28] MEDS: Lactic Acid (Ammonium Lactate) 12% Lotion 225 GM Bottle TOPICAL SCH ×2 (09:25→20:43)
[2018-07-28] MEDS: TRIAMCINOLONE ACETONIDE EACH NARE SCH (09:25)
--- NOTE | 2018-07-28 12:42 | P.PNPSY ---
Subjective Remarks: Patient seen laying in his bed in no acute distress with nurse Brigid, chart reviewed, patient discussed with nurse. Patient continues somewhat diffusely confused labile irritable wanting to go home. No complaints of right shoulder pain the patient did fall yesterday there is radiological evidence of a fracture of the right shoulder we will request orthopedic consult. Patient is scheduled for [facility] tomorrow Review of Systems All other systems reviewed negative except as stated in HPI Mental Status Examination Appearance: Disheveled Consciousness: Alert Orientation: Person, Place ([place]) Motor Activity: Other (No motor abnormalities noted) Speech: Unremarkable Language: Other (Rambling) Fund of Knowledge: Inadequate Attention and Concentration: Inadequate Memory: Impaired Mood: Other (Calm) Affect: Euthymic Thought Process & Associations: Tangential (In setting of dementia) Thought Content: Other (Poverty of thought) Hallucination Type: None Delusion Type: None Suicidal Ideation: No Suicidal Plan: No Suicidal Intention: No Homicidal Ideation: No Homicidal Plan: No Homicidal Intention: No Insight: Poor Judgment: Poor Assessment and Plan - Assessment (1) Alzheimer's disease with late onset Code(s): G30.1 - Alzheimer's disease with late onset; F02.80 - Dementia in other diseases classified elsewhere without behavioral disturbance Status: Acute (2) Dementia in other diseases classified elsewhere with behavioral disturbance Code(s): F02.81 - Dementia in other diseases classified elsewhere with behavioral disturbance Status: Acute - Plan Plan: Patient continues diffusely confused demented the low significant behavioral problems. Orthopedic consult has been made for follow-up on her fractured right shoulder Justification for Continued Inpatient Stay: At this time patient would decompensate a place to a lower level of care Discharge Planning: To be determined
[2018-07-28] MEDS: QUEtiapine 25 MG Tablet PO SCH (20:42)
[2018-07-28] MEDS: Meloxicam 7.5 MG Tablet PO SCH (20:42)
--- NOTE | 2018-07-29 07:13 | P.PN ---
Subjective Interval history: Patient doing well, tolerating PO, voiding/stooling well. Patient reports that he has been following his diabetic diet. No other concerns. Physical Exam Vital signs: Vital Signs 07/28/18 17:42 07/29/18 05:41 Temperature 97.7 F 98.1 F Pulse Rate 100 H 80 Respiratory Rate 18 16 Blood Pressure 120/67 143/55 H Pulse Oximetry 100 92 L Intake & Output 07/28/18 07/29/18 07/29/18 18:59 06:59 18:59 Intake Total 1560 / 1560 Balance 1560 / 1560 Intake: Oral 1560 / 1560 Other: # Voids 4 Date of Last Bowel Movement 07/28/18 Narrative: GENERAL: well nourished male, in NAD, sitting comfortably in bed, Hard of hearing HEENT: PERRLA, MOM, poor dentition CARDIOVASCULAR: irregularly irregular rhythm on exam, no M/R/G RESPIRATORY: No accessory muscle use. Clear to auscultation. Breath sounds equal bilaterally. GASTROINTESTINAL: Abdomen soft, non-tender, nondistended. Hepatic and splenic margins not palpable. MUSCULOSKELETAL: Extremities without clubbing, cyanosis, or edema. No obvious deformities. Normal shoulder exam. NEUROLOGICAL: Awake and alert. No obvious cranial nerve deficits. Motor grossly within normal limits. Able to move all extremities spontaneously. Normal speech. gait steady> PSYCHIATRIC: Calm and cooperative; insight and judgment poor. AAOx1. Pleasant. Results - Labs CBC & Chem 7: 07/19/18 09:04 07/19/18 09:04 Laboratory Results - last 24 hr 07/28/18 07/28/18 07/28/18 08:59 10:56 16:54 POC Glucose 304 H 332 H 120 H 07/28/18 07/29/18 20:51 06:22 POC Glucose 170 H 226 H Assessment and Plan - Assessment (1) Alzheimer's disease with late onset Code(s): G30.1 - Alzheimer's disease with late onset; F02.80 - Dementia in other diseases classified elsewhere without behavioral disturbance Status: Acute (2) Dementia in other diseases classified elsewhere with behavioral disturbance Code(s): F02.81 - Dementia in other diseases classified elsewhere with behavioral disturbance Status: Acute (3) Hypertension Code(s): I10 - Essential (primary) hypertension Status: Acute (4) Atrial fibrillation Code(s): I48.91 - Unspecified atrial fibrillation Status: Acute (5) Diabetes Code(s): E11.9 - Type 2 diabetes mellitus without complications Status: Acute - Plan This is a 72 y/o CM with PMhx of CVA, CAD s/p CABG, DM, and HLD admitted to inpatient psychiatry under [facility], [facility] reconsulted for DM management, HD#12 1. Dementia with Behavioral Disturbance -CT Head neg for acute intracranial process -Management per psychiatric team -Fall precautions, PT/OT 2. Diabetes Mellitus, Type II (as OP on Tresiba + Metformin) -BS improved, HgbA1c 7.9 -Continue home Metformin 1000mg PO BID and Increase Insulin 70/30 to 16U BID -BS 226, 170, 120 -Cont. Accucheck AC/HS 3. AFib/Hypertension/CAD s/p CABG -EKG with A. Fib -Continue patient on home medications Coreg 6.25mg BID -continue Vasotec 5mg po daily -Continue on ASA daily (declines OAC) -Clonidine prn with parameters 4. Hyperlipidemia -Continue statin 5. Hx of CVAs -Continue on Aspirin daily 6. Right shoulder pain, subacute fx? -Ortho consulted by Psych team, nonsurgical, patient now denies pain -Cont. Mobic Right shoulder CT: 1. Proximal humerus fracture, likely subacute to chronic with central bone bridging. 2. Severe arthritic findings of the glenohumeral joint. Right Shoulder XR: CONCLUSION: Humeral neck deformity presumably from a remote fracture. However cannot completely exclude acute fracture. If clinical findings suggest fracture would recommend further evaluation with computed tomography. 7. GERD -Cont. PPI 8. DVT prophylaxis: ambulatory 9. Dispo: adjust insulin pending BS
[2018-07-29] MEDS: Insulin NovoLOG Aspart Correctional Sugar Inj SQ SCH ×4 (08:31→20:50)
--- NOTE | 2018-07-29 08:35 | P.PNOP ---
Subjective Interval history: Patient has a history of bilateral proximal humerus fractures. On his admission he does continue to complain of chronic shoulder pains. He has had multiple falls and x-ray and CT is obtained showing a history of proximal humerus fracture to the right side. He still complains of some pain in the shoulder. He is sitting eating breakfast with no sling. He is using the arm to feed himself. When asked about the arm he states "it does not hurt that bad. " He is very hard of hearing and unfortunately is a poor historian. Physical Exam Vital signs: Vital Signs 07/28/18 17:42 07/29/18 05:41 Temperature 97.7 F 98.1 F Pulse Rate 100 H 80 Respiratory Rate 18 16 Blood Pressure 120/67 143/55 H Pulse Oximetry 100 92 L Intake & Output 07/28/18 07/29/18 07/29/18 18:59 06:59 18:59 Intake Total 1560 / 1560 Balance 1560 / 1560 Intake: Oral 1560 / 1560 Other: # Voids 4 Date of Last Bowel Movement 07/28/18 Narrative: Right upper extremity: Examination reveals mild tenderness to palpation of the proximal humerus. He has minimal swelling or bruising. Passively I can forward flex to 90 degrees and abduct to 60 degrees with discomfort at the end of range of motion. He has full range of motion of the elbow wrist and fingers. He has intact sensation of the radial ulnar and median nerve distributions with good capillary refills. He is able to fully extend his fingers and make a fist Results - Labs CBC & Chem 7: 07/19/18 09:04 07/19/18 09:04 Laboratory Results - last 24 hr 07/28/18 07/28/18 07/28/18 08:59 10:56 16:54 POC Glucose 304 H 332 H 120 H 07/28/18 07/29/18 20:51 06:22 POC Glucose 170 H 226 H Assessment and Plan - Assessment and Plan Subacute or chronic proximal humerus fracture of the right side It does not appear that he has an acute fracture or refracture of the arm from his fall. He does have mild to moderate pain which is consistent with adhesive capsulitis of the shoulder and bone contusion. I will discuss with Dr. Coyle further care and treatment plan. At this point I would not recommend a sling for swath. I would let him do activities as tolerated. I would avoid any heavy lifting or pushing off. Repeat x-rays in 2-3 weeks are recommended if pain persists.
[2018-07-29] MEDS: Carvedilol 6.25 MG Tablet PO SCH ×2 (08:53→20:39)
[2018-07-29] MEDS: Lactic Acid (Ammonium Lactate) 12% Lotion 225 GM Bottle TOPICAL SCH ×2 (08:54→20:40)
[2018-07-29] MEDS: TRIAMCINOLONE ACETONIDE EACH NARE SCH (09:05)
--- NOTE | 2018-07-29 10:05 | P.PNPSY ---
Subjective Remarks: Patient is seen [place] [facility]. Patient's case continued for 2 weeks by Cesar Conteh to allow for further communication with patient's related to placement issues. Patient remains focused on discharge and wanting to go home. Showing no insight into his disease or behavior. We will decrease Seroquel to 25 mg twice daily orthopedic consult noted reviewed and agreed with and appreciated. For now continue treatment Review of Systems All other systems reviewed negative except as stated in HPI Mental Status Examination Appearance: Disheveled Consciousness: Alert Orientation: Person, Place ([place]) Motor Activity: Other (No motor abnormalities noted) Speech: Unremarkable Language: Other (Rambling) Fund of Knowledge: Inadequate Attention and Concentration: Inadequate Memory: Impaired Mood: Other (Calm) Affect: Euthymic Thought Process & Associations: Tangential (In setting of dementia) Thought Content: Other (Poverty of thought) Hallucination Type: None Delusion Type: None Suicidal Ideation: No Suicidal Plan: No Suicidal Intention: No Homicidal Ideation: No Homicidal Plan: No Homicidal Intention: No Insight: Poor Judgment: Poor Assessment and Plan - Assessment (1) Alzheimer's disease with late onset Code(s): G30.1 - Alzheimer's disease with late onset; F02.80 - Dementia in other diseases classified elsewhere without behavioral disturbance Status: Acute (2) Dementia in other diseases classified elsewhere with behavioral disturbance Code(s): F02.81 - Dementia in other diseases classified elsewhere with behavioral disturbance Status: Acute - Plan Plan: Patient remains confused demented functioning on discharge. Having no insight into her disease. Patient was [facility] continued times 2 weeks she medication adjustment above orthopedic consult note reviewed and agreed with and appreciated Justification for Continued Inpatient Stay: At this time patient would decompensate a place to a lower level of care Discharge Planning: To be determined
--- NOTE | 2018-07-29 11:13 | P.CONOP ---
[facility] - [facility] Consult date: 07/28/18 Requesting physician: Nasim Simmons Consult reason: other (Right proximal humerus fracture) Chief complaint: Dementia with behavioral disturbance Narrative: Patient is initially admitted to [facility] under a Nasim Friedman but suffers from significant dementia and multiple health issues. He has previous bilateral proximal humerus fractures and has had chronic pain to both shoulders. He has had multiple falls while in the psych unit. X-ray and CTs of both obtained showing previous fracture of the proximal humerus and orthopedics is consulted for management. He denies any new injuries from his falls. Review of Systems Constitutional: Denies chills, Denies fatigue Eyes: Denies blurry vision, Denies loss of vision Ears, Nose, Mouth, and Throat: Reports abnormal hearing, Denies nasal discharge , Denies pain with swallowing Cardiovascular: Denies chest pain, Denies fast heart rate, Denies irregular heart rhythm, Denies lightheadedness, Denies shortness of breath with activity Respiratory: Denies cough, Denies pain on inspiration, Denies shortness of breath Gastrointestinal: Denies abdominal pain, Denies difficulty swallowing, Denies incontinent of stools, Denies vomiting Genitourinary: Denies difficulty urinating, Denies side pain Comments: Complains of some right shoulder pain with movement Skin/Breast: Denies new lesions, Denies non-healing lesions, Denies yellowing of the skin Neurologic: Denies radiating pain, Denies tingling/numbness/burning sensations Endocrine: Denies cold intolerance, Denies excessive sweating Hematologic/Lymphatic: Denies easy bleeding Allergic/Immunologic: Denies GI upset with certain foods PMFSH - History History Provided By: Patient, Medical Record, Law Enforcement - Medical History Medical History: Medical History (Last Reviewed 07/29/18 @ 11:06 by VANIA Hoover) CAD (coronary artery disease) CVA (cerebral vascular accident) Dementia Diabetes Dyslipidemia - Surgical History Surgical History: Surgical History (Last Reviewed 07/29/18 @ 11:06 by VANIA Hoover) Hx of CABG - Family History Family History: Family History (Last Reviewed 07/29/18 @ 11:06 by VANIA Hoover) Other No pertinent family history - Social History I have reviewed the patient's Social History: Yes - Tobacco History Second Hand Smoke Exposure: No Tobacco Use In Past 30 Days: No Smoking Status: Never smoker - Alcohol History How Often Do You Have a Drink Containing Alcohol: Never - Substance Use History Substance History: No History of Abuse - Travel History Recent Travel in the [place] Within the Last 8 Weeks: No Recent Travel Out of the Country Within the Last 8 Weeks: No - Immunization History Tetanus Immunization: Unsure Hx Influenza Vaccine This Season: Unable to Assess Medications and Allergies Active Medications: Active Medications Acetaminophen (Tylenol) 650 mg PO Q4H PRN PRN Reason: Pain 1-5 or Temp >101F Al Hydrox/Mg Hydrox/Simethicone (Mag-Al Plus Susp Liq) 30 ml PO Q6H PRN PRN Reason: DYSPEPSIA Al Hydroxide/Mg Hydroxide (Milk Of Magnesia Liq) 30 ml PO Q12H PRN PRN Reason: Mild Constipation Aspirin (Ecotrin) 81 mg PO HS [facility] Last Admin: 07/28/18 20:42 Dose: 81 mg Atorvastatin Calcium (Lipitor) 80 mg PO HS [facility] Last Admin: 07/28/18 20:42 Dose: 80 mg Carvedilol (Coreg) 6.25 mg PO BID [facility] Last Admin: 07/29/18 08:53 Dose: 6.25 mg Clonidine HCl (Catapres) 0.1 mg PO Q6H PRN PRN Reason: SBP>180, DBP>95 Dextrose (D50w Vial) 50 ml IV.PUSH UNSCH PRN PRN Reason: PER HYPOGLYCEMIA PROTOCOL Diphenhydramine HCl (Benadryl) 50 mg PO HS PRN PRN Reason: INSOMNIA Last Admin: 07/20/18 21:13 Dose: 50 mg Enalapril Maleate (Vasotec) 5 mg PO DAILY [facility] Last Admin: 07/29/18 08:58 Dose: 5 mg Glucagon (Glucagon Inj) 1 mg OTHER UNSCH PRN PRN Reason: for Hypoglycemia Protocol Hydroxyzine HCl (Atarax) 50 mg PO Q6H PRN PRN Reason: ANXIETY Last Admin: 07/28/18 20:42 Dose: 50 mg Insulin Aspart (Novolog Insulin [employer]al Sugar Inj) 0 unit SQ [facility]; Protocol Last Admin: 07/29/18 08:31 Dose: 3 unit Insulin Human Isoph/Insulin Regular (Novolin 70/30 Inj) 16 units SQ BID@0800, 1700 [facility] Last Admin: 07/29/18 08:30 Dose: 16 units Lactic Acid (Lac-Hydrin 12% Lotion) 1 applicatio TOPICAL BID [facility] Last Admin: 07/29/18 08:54 Dose: 1 applicatio Meloxicam (Mobic) 7.5 mg PO [facility] Last Admin: 07/28/18 20:42 Dose: 7.5 mg Metformin HCl (Glucophage) 1,000 mg PO BID [facility] Last Admin: 07/29/18 08:53 Dose: 1,000 mg Pantoprazole Sodium (Protonix) 40 mg PO DAILY [facility] Last Admin: 07/29/18 09:04 Dose: 40 mg Pt Own Med: Insulin Degludec (Tresiba Flextouch) 0 each SQ DAILY [facility] Pt Own Med: Semaglutide (Ozempic ) 0 each SQ WEEKLY [facility] Quetiapine Fumarate (Seroquel) 25 mg PO BID [facility] Triamcinolone Acetonide (Nasacort Nasal [place]) 2 spray EACH NARE DAILY [facility] Last Admin: 07/29/18 09:05 Dose: 2 spray Allergies Allergy/AdvReac Type Severity Reaction Status Date / Time No Known Allergies Allergy Verified 07/18/18 13:43 Home Medications Medication Instructions Recorded Confirmed Type aspirin [Aspir-81] 81 mg PO HS 07/18/18 07/18/18 History carvedilol 6.25 mg PO DAILY 07/18/18 07/18/18 History enalapril maleate 5 mg PO DAILY 07/18/18 07/18/18 History insulin degludec [Tresiba 14 unit SUB-Q DAILY 07/18/18 07/18/18 History FlexTouch U-100] meloxicam 7.5 mg PO HS 07/18/18 07/18/18 History metformin 1,000 mg PO BID 07/18/18 07/18/18 History pantoprazole 40 mg PO DAILY 07/18/18 07/18/18 History rosuvastatin 40 mg PO HS 07/18/18 07/18/18 History semaglutide [Ozempic] 0.5 mg SUB-Q QWEEK 07/18/18 07/18/18 History simvastatin 20 PO HS 07/18/18 History triamcinolone acetonide [Nasacort] 2 spray INTRANASAL DAILY 07/18/18 07/18/18 History Exam Vital signs: Vital Signs 07/28/18 17:42 07/29/18 05:41 Temperature 97.7 F 98.1 F Pulse Rate 100 H 80 Respiratory Rate 18 16 Blood Pressure 120/67 143/55 H Pulse Oximetry 100 92 L Intake & Output 07/28/18 07/29/18 07/29/18 18:59 06:59 18:59 Intake Total 1560 / 1560 Balance 1560 / 1560 Intake: Oral 1560 / 1560 Other: # Voids 4 Date of Last Bowel Movement 07/28/18 - Constitutional no acute distress - Routine HEENT Exam Head: Present: normocephalic, atraumatic Eye: Present: EOMI Comments: Hard of hearing - Routine Neck Exam Present: supple. Absent: lymphadenopathy - Routine Chest/Breast/Axilla Exam Chest wall: Absent: tenderness Axillae: Absent: lymphadenopathy - Routine Respiratory Exam Absent: accessory muscle use, respiratory distress - Routine Cardiovascular Exam Present: RRR - Routine Abdominal Exam Present: soft. Absent: tenderness - Routine Extremities Exam Comments: Left upper extremity: Some tenderness with range of motion of shoulder. Full range of motion elbow wrist and fingers. Intact sensation over the radial ulnar and median nerve distributions with good capillary refills. Bilateral lower extremities: Full range of motion and neurovascularly intact. Is able to stand and walk with a near normal gait Right upper extremity: Examination reveals mild tenderness to palpation of the proximal humerus. I am able to forward flex to 90 degrees and abduct to 60 degrees with discomfort at the end of range of motion. No laxity but mild crepitus is noted. He has full range of motion of the elbow wrist and fingers. Distally he has intact sensation over the radial ulnar and median nerve distributions with good capillary refills. Results - Labs Result Diagrams: 07/19/18 09:04 07/19/18 09:04 Labs: Laboratory Results - last 24 hr 07/28/18 07/28/18 07/28/18 10:56 16:54 20:51 POC Glucose 332 H 120 H 170 H 07/29/18 06:22 POC Glucose 226 H - Diagnostic results Shoulder x-ray: report reviewed, image reviewed Shoulder CT: report reviewed, image reviewed Assessment and Plan - Problem List (1) Closed fracture of left proximal humerus Code(s): S42.202A - Unspecified fracture of upper end of left humerus, initial encounter for closed fracture Status: Chronic Qualifiers: Encounter type: initial encounter - Assessment and Plan Subacute or chronic proximal humerus fracture of the right side It does not appear that he has an acute fracture or refracture of the arm from his falls. He does have mild to moderate pain which is consistent with adhesive capsulitis of the shoulder and bone contusion. I will discuss with Dr. Coyle further care and treatment plan. At this point I would not recommend a sling or swath. I would let him do activities as tolerated. I would avoid any heavy lifting or pushing off. Repeat x-rays in 2-3 weeks are recommended if pain persists. It is recommended the physical therapy begin working on passive and active range of motion of the shoulder but no strengthening at this time X-rays and plan are reviewed and agreed with by Dr. Coyle. We will continue to follow if continued or any worsening symptoms
[2018-07-29] MEDS: Meloxicam 7.5 MG Tablet PO SCH (20:39)
[2018-07-29] MEDS: QUEtiapine 25 MG Tablet PO SCH (20:49)
--- NOTE | 2018-07-30 07:34 | P.PN ---
Subjective Interval history: Patient doing well, no overnight concerns. Patient reports that he is keeping his diabetic diet, no concerns per Nursing. Physical Exam Vital signs: Vital Signs 07/29/18 18:30 07/30/18 05:49 Temperature 98.5 F 98.2 F Pulse Rate 89 91 H Respiratory Rate 16 18 Blood Pressure 113/55 L 167/74 H Pulse Oximetry 93 L 98 Intake & Output 07/29/18 07/30/18 07/30/18 18:59 06:59 18:59 Intake Total 1260 / 1260 0 / 0 Balance 1260 / 1260 0 / 0 Intake: Oral 1260 / 1260 0 / 0 Other: # Voids 3 2 Narrative: GENERAL: well nourished male, in NAD, sitting comfortably in bed, Hard of hearing HEENT: LIZRLA, MOM, poor dentition CARDIOVASCULAR: irregularly irregular rhythm on exam, no M/R/G RESPIRATORY: No accessory muscle use. Clear to auscultation. Breath sounds equal bilaterally. GASTROINTESTINAL: Abdomen soft, non-tender, nondistended. Hepatic and splenic margins not palpable. MUSCULOSKELETAL: Extremities without clubbing, cyanosis, or edema. No obvious deformities. Normal shoulder exam. NEUROLOGICAL: Awake and alert. No obvious cranial nerve deficits. Motor grossly within normal limits. Able to move all extremities spontaneously. Normal speech. gait steady> PSYCHIATRIC: Calm and cooperative; insight and judgment poor. AAOx1. Pleasant. Results - Labs CBC & Chem 7: 07/19/18 09:04 07/19/18 09:04 Laboratory Results - last 24 hr 07/29/18 07/29/18 07/29/18 11:02 16:21 20:48 POC Glucose 315 H 283 H 201 H 07/30/18 07:20 POC Glucose 225 H Assessment and Plan - Assessment (1) Alzheimer's disease with late onset Code(s): G30.1 - Alzheimer's disease with late onset; F02.80 - Dementia in other diseases classified elsewhere without behavioral disturbance Status: Chronic (2) Dementia in other diseases classified elsewhere with behavioral disturbance Code(s): F02.81 - Dementia in other diseases classified elsewhere with behavioral disturbance Status: Chronic (3) Hypertension Code(s): I10 - Essential (primary) hypertension Status: Chronic (4) Atrial fibrillation Code(s): I48.91 - Unspecified atrial fibrillation Status: Chronic (5) Diabetes Code(s): E11.9 - Type 2 diabetes mellitus without complications Status: Chronic - Plan This is a 72 y/o CM with PMhx of CVA, CAD s/p CABG, DM, and HLD admitted to inpatient psychiatry under [facility], [facility] reconsulted for DM management, HD#13 1. Dementia with Behavioral Disturbance -CT Head neg for acute intracranial process -Management per psychiatric team -Fall precautions, PT/OT 2. Diabetes Mellitus, Type II (as OP on Tresiba + Metformin) -BS improved, 225, 201, 315 -Continue home Metformin 1000mg PO BID and Increase Insulin 70/30 to 20U BID -HgbA1c 7.9 -Cont. Accucheck AC/HS 3. AFib/Hypertension/CAD s/p CABG -mildly elevated overnight but has been stable during hospitalization, monitor, if continued elevation adjust meds -EKG with A. Fib -Continue patient on home Coreg 6.25mg BID and Vasotec 5mg QD -Continue on ASA daily (declines OAC) -Clonidine PRN with parameters 4. Hyperlipidemia -Continue statin 5. Hx of CVA's -Continue on Aspirin daily 6. Right shoulder pain, subacute fx? -Ortho consulted by Psych team, R Humerus Fx nonsurgical, patient now denies pain -Cont. Mobic Right shoulder CT: 1. Proximal humerus fracture, likely subacute to chronic with central bone bridging. 2. Severe arthritic findings of the glenohumeral joint. Right Shoulder XR: CONCLUSION: Humeral neck deformity presumably from a remote fracture. However cannot completely exclude acute fracture. If clinical findings suggest fracture would recommend further evaluation with computed tomography. 7. GERD -Cont. PPI 8. DVT prophylaxis: ambulatory 9. Dispo: adjust insulin pending BS, F/U BP Code Status: full Discussed Condition With: patient, RN
[2018-07-30] MEDS: Insulin NovoLOG Aspart Correctional Sugar Inj SQ SCH ×4 (08:36→21:28)
[2018-07-30] MEDS: QUEtiapine 25 MG Tablet PO SCH ×3 (08:38→18:48)
[2018-07-30] MEDS: Carvedilol 6.25 MG Tablet PO SCH ×2 (08:38→21:27)
[2018-07-30] MEDS: TRIAMCINOLONE ACETONIDE EACH NARE SCH (08:39)
[2018-07-30] MEDS: Lactic Acid (Ammonium Lactate) 12% Lotion 225 GM Bottle TOPICAL SCH ×2 (10:45→21:27)
--- NOTE | 2018-07-30 10:53 | P.PNPSY ---
Subjective Remarks: Patient is seen in his room with nurse Mihaela and medical student Kelli, chart reviewed, patient compliant medication. Patient continues confused diffusely disoriented somewhat labile with focusing on wanting to go home and not understanding how her process at this time. For now we will increase Seroquel to 25 mg 3 times daily Review of Systems All other systems reviewed negative except as stated in HPI Mental Status Examination Appearance: Disheveled Consciousness: Alert Orientation: Person, Place ([place]) Motor Activity: Other (No motor abnormalities noted) Speech: Unremarkable Language: Other (Rambling) Fund of Knowledge: Inadequate Attention and Concentration: Inadequate Memory: Impaired Mood: Other (Calm) Affect: Euthymic Thought Process & Associations: Tangential (In setting of dementia) Thought Content: Other (Poverty of thought) Hallucination Type: None Delusion Type: None Suicidal Ideation: No Suicidal Plan: No Suicidal Intention: No Homicidal Ideation: No Homicidal Plan: No Homicidal Intention: No Insight: Poor Judgment: Poor Assessment and Plan - Assessment (1) Alzheimer's disease with late onset Code(s): G30.1 - Alzheimer's disease with late onset; F02.80 - Dementia in other diseases classified elsewhere without behavioral disturbance Status: Acute (2) Dementia in other diseases classified elsewhere with behavioral disturbance Code(s): F02.81 - Dementia in other diseases classified elsewhere with behavioral disturbance Status: Acute - Plan Plan: Patient remains confused and demented, with somewhat labile mood getting a little bit aggressive with S1 his difficulty hearing also impedes his ability to process questions see medication adjustment above Justification for Continued Inpatient Stay: At this time patient would decompensate a place to a lower level of care Discharge Planning: To be determined
--- NOTE | 2018-07-30 15:12 | P.DIET ---
Nutritional Evaluation Type of nutrition evaluation: follow-up Nutrition consult regarding: Diet Evaluation Nutrition screening: [facility] Screening comments: 07/27/18 [facility] diet education 07/18/18 [facility] Poor PO Intake Subjective Oral Diet Tolerance Assessment Indicates: Poor dentition Subjective Comments: Pt. eating lunch when visited-100% po for meal. Discussed appropriateness of diet education for this pt w/dementia and confusion-discussed w/RN Mihaela. Brought forward from prevoius note: Pt visited before dinner today. Pt is edentulous on his upper mouth and says he doesnt know where his denture is. Pt' s lower mouth w/missing teeth. Pt denies any problem chewing and says, "I'm here aren't I"? Pt receptive to receiving an oral nutritional supplement and prefers chocolate flavor. Objective - Diagnosis Dementia w/Behavioral Disturbances - Objective [place] body weight: 78.2 kg % IBW: 83 Body Weight Used for Calculations: Actual Energy Needs - Lower Range (kCal/kg): 33 Energy Needs - Upper Range (kCal/kg): 38 Lower Limit kCal/kg (kCals): 2,145 Upper Limit kCal/kg (kCals): 2,470 Lower Limit Protein Factor (Grams per Kg): 1.2 Upper Limit Protein Factor (Grams per Kg): 1.5 Lower Protein Needs (Protein): 78 Upper Protein Needs (Protein): 98 Fluid Factor (ml/kg): 33 Estimated Fluid Needs (ml): 2,145 Dietitian Reviewed in Medical Record: Current diet, Curent medications, Intake & Output, Labs, Medical history Diet Order: 1800ADA Oral Diet Intake Amount: Good 75-90% Objective Comments: PMH Includes: Dementia, DM, CAD, s/p CABG, CVA, Dyslipidemia POC Glucose 232 Meds Include: Glucophage, Novolog SSI, Vovolin 70/30 20U SQ BID 0800, 1700; Glucophage, Lipitor, Coreg, Catapres, Vasotec, Atarax, Mobic, Protonix, Seroquel Feeding - Current PO Supplement Current Supplement: Glucerna Shake Current Frequency of Supplement: Three times a day Current kCals Provided by Supplement: 220 Current Protein Provided by Supplement: 10 Assessment Assessment: Nutrition Follow-up for [facility] poor po intake. Pt tolerating diet w/Adequate PO intake 50% or greater for meals. Agree w/ 2200ADA diet. Continue Glucerna Shakes TID. Pt is not appropriate for diet education r/t current clinical status -discussed w/RN Mihaela. Dietitian to follow as needed. Recommendations: 1. Rec 2200ADA diet 2. Continue Glucerna Shakes TID 3. Pt is not appropriate for diet education at this time 4. Dietitian to follow as needed
[2018-07-30] MEDS: Meloxicam 7.5 MG Tablet PO SCH (21:26)
--- NOTE | 2018-07-31 07:13 | P.PN ---
Subjective Interval history: Patient doing well this AM, reports that he is tolerating PO, voiding/stooling well. No concerns. Physical Exam Vital signs: Vital Signs 07/30/18 17:16 07/31/18 06:00 Temperature 97.5 F L 98.2 F Pulse Rate 67 81 Respiratory Rate 16 15 Blood Pressure 119/59 L 137/63 Pulse Oximetry 96 96 Intake & Output 07/30/18 07/31/18 07/31/18 18:59 06:59 18:59 Other: # Voids 1 Narrative: GENERAL: well nourished male, in NAD, sitting comfortably in bed, Hard of hearing HEENT: PERRLA, MOM, poor dentition CARDIOVASCULAR: irregularly irregular rhythm on exam, no M/R/G RESPIRATORY: No accessory muscle use. Clear to auscultation. Breath sounds equal bilaterally. GASTROINTESTINAL: Abdomen soft, non-tender, nondistended. Hepatic and splenic margins not palpable. MUSCULOSKELETAL: Extremities without clubbing, cyanosis, or edema. No obvious deformities. Normal shoulder exam. NEUROLOGICAL: Awake and alert. No obvious cranial nerve deficits. Motor grossly within normal limits. Able to move all extremities spontaneously. Normal speech. gait steady> PSYCHIATRIC: Calm and cooperative; insight and judgment poor. AAOx1. Pleasant. Results - Labs CBC & Chem 7: 07/19/18 09:04 07/19/18 09:04 Laboratory Results - last 24 hr 07/30/18 07/30/18 07/30/18 07:20 10:53 16:06 POC Glucose 225 H 232 H 93 07/30/18 07/31/18 19:53 06:36 POC Glucose 251 H 136 H Assessment and Plan - Assessment (1) Alzheimer's disease with late onset Code(s): G30.1 - Alzheimer's disease with late onset; F02.80 - Dementia in other diseases classified elsewhere without behavioral disturbance Status: Chronic (2) Dementia in other diseases classified elsewhere with behavioral disturbance Code(s): F02.81 - Dementia in other diseases classified elsewhere with behavioral disturbance Status: Chronic (3) Hypertension Code(s): I10 - Essential (primary) hypertension Status: Chronic (4) Atrial fibrillation Code(s): I48.91 - Unspecified atrial fibrillation Status: Chronic (5) Diabetes Code(s): E11.9 - Type 2 diabetes mellitus without complications Status: Chronic - Plan This is a 72 y/o CM with PMhx of CVA, CAD s/p CABG, DM, and HLD admitted to inpatient psychiatry under [facility] [facility], [facility] reconsulted for DM management, HD#14 1. Dementia with Behavioral Disturbance -CT Head neg for acute intracranial process -Management per psychiatric team -Fall precautions, PT/OT 2. Diabetes Mellitus, Type II (as OP on Tresiba + Metformin) -BS improved, 251, 136, 93 -Continue home Metformin 1000mg PO BID and Increase Insulin 70/30 to 22U BID -HgbA1c 7.9 -Cont. Accucheck AC/HS, if WNL will sign off 3. AFib/Hypertension/CAD s/p CABG -EKG with A. Fib -Continue patient on home Coreg 6.25mg BID and Vasotec 5mg QD -Continue on ASA daily (declines OAC) -Clonidine PRN with parameters 4. Hyperlipidemia -Continue statin 5. Hx of CVA's -Continue on Aspirin daily 6. Right shoulder pain, subacute fx? -Ortho consulted by Psych team, R Humerus Fx nonsurgical, patient now denies pain -Cont. Mobic Right shoulder CT: 1. Proximal humerus fracture, likely subacute to chronic with central bone bridging. 2. Severe arthritic findings of the glenohumeral joint. Right Shoulder XR: CONCLUSION: Humeral neck deformity presumably from a remote fracture. However cannot completely exclude acute fracture. If clinical findings suggest fracture would recommend further evaluation with computed tomography. 7. GERD -Cont. PPI 8. DVT prophylaxis: ambulatory 9. Dispo: adjust insulin pending BS, once WNL will sign off Code Status: full Discussed Condition With: patient, RN
[2018-07-31] MEDS: Carvedilol 6.25 MG Tablet PO SCH ×2 (08:25→20:33)
[2018-07-31] MEDS: QUEtiapine 25 MG Tablet PO SCH ×3 (08:25→17:51)
[2018-07-31] MEDS: Insulin NovoLOG Aspart Correctional Sugar Inj SQ SCH ×4 (08:26→20:35)
[2018-07-31] MEDS: Lactic Acid (Ammonium Lactate) 12% Lotion 225 GM Bottle TOPICAL SCH ×2 (08:27→20:34)
[2018-07-31] MEDS: TRIAMCINOLONE ACETONIDE EACH NARE SCH (08:27)
--- NOTE | 2018-07-31 12:19 | P.PNPSY ---
Subjective Remarks: Reviewed electronic medical records and discussed case with staff. Follow-up was conducted in the day room with Katrin ANTONIO present. Nurse reports that he has been compliant with medications but is still having some fluctuation BGL's. When asked how he feels he states, "I just rock 'n' roll". He reports that he tossed and turned last night but states that he had a good appetite. His mood seems good his affect seems euthymic. He remains focused on discharge. Mental Status Examination Appearance: Disheveled Consciousness: Alert Orientation: Person, Place ([place]) Motor Activity: Other (No motor abnormalities noted) Speech: Unremarkable Language: Other (Rambling) Fund of Knowledge: Inadequate Attention and Concentration: Inadequate Memory: Impaired Mood: Other (Calm) Affect: Euthymic Thought Process & Associations: Tangential (In setting of dementia) Thought Content: Other (Poverty of thought) Hallucination Type: None Delusion Type: None Suicidal Ideation: No Suicidal Plan: No Suicidal Intention: No Homicidal Ideation: No Homicidal Plan: No Homicidal Intention: No Insight: Poor Judgment: Poor Assessment and Plan - Assessment (1) Dementia in other diseases classified elsewhere with behavioral disturbance Code(s): F02.81 - Dementia in other diseases classified elsewhere with behavioral disturbance Status: Chronic - Plan Plan: Patient will be reevaluated Thursday by the attending psychiatrist. Continue with current treatment plan. Justification for Continued Inpatient Stay: Moving this patient to a less restrictive environment would likely result in decompensation.
[2018-07-31] MEDS: Meloxicam 7.5 MG Tablet PO SCH (20:34)
[2018-08-01] MEDS: QUEtiapine 25 MG Tablet PO SCH ×4 (08:04→18:12)
[2018-08-01] MEDS: Carvedilol 6.25 MG Tablet PO SCH ×2 (08:04→20:49)
[2018-08-01] MEDS: TRIAMCINOLONE ACETONIDE EACH NARE SCH (08:05)
[2018-08-01] MEDS: Lactic Acid (Ammonium Lactate) 12% Lotion 225 GM Bottle TOPICAL SCH ×2 (08:06→20:51)
[2018-08-01] MEDS: Insulin NovoLOG Aspart Correctional Sugar Inj SQ SCH ×4 (08:07→20:50)
--- NOTE | 2018-08-01 09:02 | P.PNPSY ---
Subjective Remarks: Reviewed electronic medical records and discussed case with staff. Follow-up was conducted in the day room with Katrin ANTONIO present. Patient is euthymic. He states that he is doing well. Sleeping throughout the night. Good appetite. No other concerns at this time. Pre-occupied with discharge. Review of Systems All other systems reviewed negative except as stated in HPI Mental Status Examination Appearance: Disheveled Consciousness: Alert Orientation: Person, Place ([place]) Motor Activity: Other (No motor abnormalities noted) Speech: Unremarkable Language: Other (Rambling) Fund of Knowledge: Inadequate Attention and Concentration: Inadequate Memory: Impaired Mood: Other (Calm) Affect: Euthymic Thought Process & Associations: Tangential (In setting of dementia) Thought Content: Other (Poverty of thought) Hallucination Type: None Delusion Type: None Suicidal Ideation: No Suicidal Plan: No Suicidal Intention: No Homicidal Ideation: No Homicidal Plan: No Homicidal Intention: No Insight: Poor Judgment: Poor Assessment and Plan - Assessment (1) Dementia in other diseases classified elsewhere with behavioral disturbance Code(s): F02.81 - Dementia in other diseases classified elsewhere with behavioral disturbance Status: Chronic - Plan Plan: Patient will be reevaluated Thursday by the attending psychiatrist. Continue with current treatment plan. Justification for Continued Inpatient Stay: Moving patient to a less restrictive environment may result in his decompensation.
[2018-08-01] MEDS: Acetaminophen 325 MG Tablet PO PRN (15:23)
[2018-08-01] MEDS: Meloxicam 7.5 MG Tablet PO SCH (20:49)
[2018-08-02] MEDS: Acetaminophen 325 MG Tablet PO PRN (00:57)
[2018-08-02] MEDS: Carvedilol 6.25 MG Tablet PO SCH ×2 (08:20→23:40)
[2018-08-02] MEDS: QUEtiapine 25 MG Tablet PO SCH ×3 (08:20→17:36)
[2018-08-02] MEDS: TRIAMCINOLONE ACETONIDE EACH NARE SCH (08:21)
[2018-08-02] MEDS: Lactic Acid (Ammonium Lactate) 12% Lotion 225 GM Bottle TOPICAL SCH ×2 (08:21→22:01)
[2018-08-02] MEDS: Insulin NovoLOG Aspart Correctional Sugar Inj SQ SCH ×4 (08:23→23:43)
--- NOTE | 2018-08-02 10:26 | P.TTN ---
- Patient Problems Problems: 1. Discharge planning 2. Medication compliance 3. Knowledge deficit 4. Lack of coping skills - Progress Toward Goals Provider Present: Dr. Paramjit Simmons Provider Input: Patient is new admission Psychiatric Counselors Present: Other Psychiatric Therapist Input: Tiana- Patient is new admission Group Spec/RT/OT/BLANK Present: Adamaris Leon, GPS, Jermaine Velarde, OT, Iam Argueta, BLANK Group Spec/RT/OT/BLANK Input: Patient is new admission - Discharge Plan Pt is expected to return home with spouse when pt is stabilized. - Documentation Scribe: Jermaine Velarde MS, OTR Teaching Recipient: Patient
--- NOTE | 2018-08-02 11:26 | P.PNPSY ---
Subjective Remarks: Patient is seen in his room with nurse Heide and medical student Sosa. Chart reviewed. Patient compliant medication. Patient somewhat calmer today and not as focused on discharge. There continues to be conversation with patient's about placement issues. Patient has had some complaints of leg cramping over the past day or 2 that appears sometimes to resolve with exercise. We will check a CMP tomorrow morning Review of Systems All other systems reviewed negative except as stated in HPI Mental Status Examination Appearance: Disheveled Consciousness: Alert Orientation: Person, Place ([place]) Motor Activity: Other (No motor abnormalities noted) Speech: Unremarkable Language: Other (Rambling) Fund of Knowledge: Inadequate Attention and Concentration: Inadequate Memory: Impaired Mood: Other (Calm) Affect: Euthymic Thought Process & Associations: Tangential (In setting of dementia) Thought Content: Other (Poverty of thought) Hallucination Type: None Delusion Type: None Suicidal Ideation: No Suicidal Plan: No Suicidal Intention: No Homicidal Ideation: No Homicidal Plan: No Homicidal Intention: No Insight: Poor Judgment: Poor Assessment and Plan - Assessment (1) Dementia in other diseases classified elsewhere with behavioral disturbance Code(s): F02.81 - Status: Chronic (2) Alzheimer's disease with late onset Code(s): G30.1 - ; F02.80 - Status: Acute - Plan Plan: Patient remained somewhat confused and disoriented though calmer today less irritable. Compliant medications. Justification for Continued Inpatient Stay: At this time patient would decompensate if placed in a lower level of care Discharge Planning: To be determined
[2018-08-02] MEDS: Meloxicam 7.5 MG Tablet PO SCH (20:43)
[2018-08-03 07:46] LABS: Albumin 3.7 g/dL (3.4-5.0); Anion Gap 9 meq/L (5-15); Aspartate Aminotransferase 19 U/L (15-37); Blood Urea Nitrogen 25 mg/dL (7-18); Calcium 10.1 mg/dL (8.5-10.1); Carbon Dioxide 27.6 meq/L (21.0-32.0); Chloride 104 meq/L (98-107); Glomerular Filtration Rate 64 mL/min (>89); Glucose,Random 117 mg/dL (74-106); Potassium 4.2 meq/L (3.5-5.1); Sodium 141 meq/L (136-145)
[2018-08-03 07:47] LABS: Alanine Aminotransferase 19 U/L (12-78)
[2018-08-03 07:49] LABS: Alkaline Phosphatase 84 U/L (45-117); Total Protein 7.8 g/dL (6.4-8.2)
[2018-08-03] MEDS: Carvedilol 6.25 MG Tablet PO SCH ×2 (08:24→20:19)
[2018-08-03] MEDS: QUEtiapine 25 MG Tablet PO SCH ×3 (08:24→20:19)
[2018-08-03] MEDS: TRIAMCINOLONE ACETONIDE EACH NARE SCH (08:24)
[2018-08-03] MEDS: Lactic Acid (Ammonium Lactate) 12% Lotion 225 GM Bottle TOPICAL SCH ×2 (08:24→20:50)
[2018-08-03] MEDS: Insulin NovoLOG Aspart Correctional Sugar Inj SQ SCH ×4 (08:25→20:52)
--- NOTE | 2018-08-03 15:13 | P.PNPSY ---
Subjective Remarks: Met with the patient's , patient's female friend who. This friend and her live with the patient and his along with their 12 and 17-year old foster children. 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 The verify some increasingly angry paranoid and agitated behaviors by the patient significant focusing on his and the female roommate. He has shown some physical aggression. To the point where the 2 foster children are afraid of him. It appears patient has been seen by neurologist in the past tried on some various medications including Klonopin with little success. At this time we will get neurology consultation. Also family request patient be a DNR that they state was his request also thus I will change CODE STATUS to DNR. We will also start him on small dose of Seroquel Review of Systems All other systems reviewed negative except as stated in HPI Mental Status Examination Appearance: Disheveled Consciousness: Alert Orientation: Person, Place ([place]) Motor Activity: Other (No motor abnormalities noted) Speech: Unremarkable Language: Other (Rambling) Fund of Knowledge: Inadequate Attention and Concentration: Inadequate Memory: Impaired Mood: Other (Calm somewhat labile and irritable) Affect: Other (Slight increased range and intensity) Thought Process & Associations: Tangential (In setting of dementia) Thought Content: Other (Poverty of thought) Hallucination Type: None Delusion Type: None Suicidal Ideation: No Suicidal Plan: No Suicidal Intention: No Homicidal Ideation: No Homicidal Plan: No Homicidal Intention: No Insight: Poor Judgment: Poor Assessment and Plan - Assessment (1) Dementia in other diseases classified elsewhere with behavioral disturbance Code(s): F02.81 - Dementia in other diseases classified elsewhere with behavioral disturbance Status: Chronic (2) Alzheimer's disease with late onset Code(s): G30.1 - Alzheimer's disease with late onset; F02.80 - Dementia in other diseases classified elsewhere without behavioral disturbance Status: Acute - Plan Plan: Patient remained somewhat confused, though with some underlying irritability. Family session today with us verifies the increasing dementia and behavioral issues. Family also states patient requests a DNR, and we will initiate Seroquel Justification for Continued Inpatient Stay: At this time patient would decompensate a place to a lower level of care Discharge Planning: To be determined
--- NOTE | 2018-08-03 16:29 | P.CONNEU ---
History of Present Illness Service: Neurology Primary Care Provider: No Primary Care Physician Chief Complaint: Cognitive impairment History of Present Illness: 72-year-old male admitted to the psychiatry unit for aggressive behaviors. Concerns of patient may have dementia. There is history the medical chart that the patient has become more aggressive and paranoid at home. Patient states he said "" 3 strokes in the past. No clear deficit from it. Poor historian overall. CT brain scan no acute lesion small vessel disease some atrophy Review of Systems All other systems reviewed negative except as stated in HPI [facility] - History History Provided By: Patient, Medical Record, Law Enforcement - Medical History Medical History: Medical History (Last Reviewed 07/29/18 @ 11:06 by VANIA Hoover) CAD (coronary artery disease) CVA (cerebral vascular accident) Dementia Diabetes Dyslipidemia - Surgical History Surgical History: Surgical History (Last Reviewed 07/29/18 @ 11:06 by VANIA Hoover) Hx of CABG - Family History Family History: Family History (Last Reviewed 07/29/18 @ 11:06 by VANIA Hoover) Other No pertinent family history - Tobacco History Second Hand Smoke Exposure: No Tobacco Use In Past 30 Days: No Smoking Status: Never smoker - Alcohol History How Often Do You Have a Drink Containing Alcohol: Never - Substance Use History Substance History: No History of Abuse - Travel History Recent Travel in the [place] Within the Last 8 Weeks: No Recent Travel Out of the Country Within the Last 8 Weeks: No - Immunization History Tetanus Immunization: Unsure Hx Influenza Vaccine This Season: Unable to Assess Medications and Allergies Active Medications: Active Medications Acetaminophen (Tylenol) 650 mg PO Q4H PRN PRN Reason: Pain 1-5 or Temp >101F Last Admin: 08/02/18 00:57 Dose: 650 mg Al Hydrox/Mg Hydrox/Simethicone (Mag-Al Plus Susp Liq) 30 ml PO Q6H PRN PRN Reason: DYSPEPSIA Al Hydroxide/Mg Hydroxide (Milk Of Magnesia Liq) 30 ml PO Q12H PRN PRN Reason: Mild Constipation Aspirin (Ecotrin) 81 mg PO HS [facility] Last Admin: 08/02/18 20:41 Dose: 81 mg Atorvastatin Calcium (Lipitor) 80 mg PO HS [facility] Last Admin: 08/02/18 20:41 Dose: 80 mg Carvedilol (Coreg) 6.25 mg PO BID [facility] Last Admin: 08/03/18 08:24 Dose: 6.25 mg Clonidine HCl (Catapres) 0.1 mg PO Q6H PRN PRN Reason: SBP>180, DBP>95 Dextrose (D50w Vial) 50 ml IV.PUSH UNSCH PRN PRN Reason: PER HYPOGLYCEMIA PROTOCOL Diphenhydramine HCl (Benadryl) 50 mg PO HS PRN PRN Reason: INSOMNIA Last Admin: 08/02/18 00:57 Dose: 50 mg Enalapril Maleate (Vasotec) 5 mg PO DAILY [facility] Last Admin: 08/03/18 08:24 Dose: 5 mg Glucagon (Glucagon Inj) 1 mg OTHER UNSCH PRN PRN Reason: for Hypoglycemia Protocol Hydroxyzine HCl (Atarax) 50 mg PO Q6H PRN PRN Reason: ANXIETY Last Admin: 08/01/18 20:49 Dose: 50 mg Insulin Aspart (Novolog Insulin Correctional Sugar Inj) 0 unit SQ [facility]; Protocol Last Admin: 08/03/18 16:23 Dose: 1 unit Insulin Human Isoph/Insulin Regular (Novolin 70/30 Inj) 22 units SQ BID@0800, 1700 [facility] Last Admin: 08/03/18 16:23 Dose: 22 units Lactic Acid (Lac-Hydrin 12% Lotion) 1 applicatio TOPICAL BID [facility] Last Admin: 08/03/18 08:24 Dose: Not Given Meloxicam (Mobic) 7.5 mg PO HS [facility] Last Admin: 08/02/18 20:43 Dose: 7.5 mg Metformin HCl (Glucophage) 1,000 mg PO BID [facility] Last Admin: 08/03/18 08:24 Dose: 1,000 mg Pantoprazole Sodium (Protonix) 40 mg PO DAILY [facility] Last Admin: 08/03/18 08:24 Dose: 40 mg Pt Own Med: Insulin Degludec (Tresiba Flextouch) 0 each SQ DAILY [facility] Pt Own Med: Semaglutide (Ozempic ) 0 each SQ WEEKLY [facility] Quetiapine Fumarate (Seroquel) 50 mg PO BID [facility] Triamcinolone Acetonide (Nasacort Nasal [place]) 2 spray EACH NARE DAILY [facility] Last Admin: 08/03/18 08:24 Dose: Not Given Allergies Allergy/AdvReac Type Severity Reaction Status Date / Time No Known Allergies Allergy Verified 07/18/18 13:43 Home Medications Medication Instructions Recorded Confirmed Type aspirin [Aspir-81] 81 mg PO HS 07/18/18 07/18/18 History carvedilol 6.25 mg PO DAILY 07/18/18 07/18/18 History enalapril maleate 5 mg PO DAILY 07/18/18 07/18/18 History insulin degludec [Tresiba 14 unit SUB-Q DAILY 07/18/18 07/18/18 History FlexTouch U-100] meloxicam 7.5 mg PO HS 07/18/18 07/18/18 History metformin 1,000 mg PO BID 07/18/18 07/18/18 History pantoprazole 40 mg PO DAILY 07/18/18 07/18/18 History rosuvastatin 40 mg PO HS 07/18/18 07/18/18 History semaglutide [Ozempic] 0.5 mg SUB-Q QWEEK 07/18/18 07/18/18 History simvastatin 20 PO HS 07/18/18 History triamcinolone acetonide [Nasacort] 2 spray INTRANASAL DAILY 07/18/18 07/18/18 History Exam Vital signs: Vital Signs 08/02/18 17:50 08/03/18 06:33 Temperature 97.8 F 97.7 F Pulse Rate 84 75 Respiratory Rate 16 16 Blood Pressure 127/61 119/58 L Pulse Oximetry 97 95 Intake & Output 08/02/18 08/03/18 08/03/18 18:59 06:59 18:59 Intake Total 1200 / 1200 460 / 460 Balance 1200 / 1200 460 / 460 Intake: Oral 1200 / 1200 360 / 360 Oral Supplement 100 / 100 Other: # Voids 3 2 Date of Last Bowel Movement 07/28/18 # Bowel Movements 0 Narrative: GENERAL: in NAD, SKIN: Warm and dry. HEAD: Atraumatic. Normocephalic. EYES: Pupils equal and round. No scleral icterus. ENT: No nasal bleeding or discharge. Mucous membranes pink and moist. NECK: Trachea midline. No JVD. CARDIOVASCULAR: Regular rate and rhythm. RESPIRATORY: No accessory muscle use. GASTROINTESTINAL: Abdomen soft, non-tender, nondistended. MUSCULOSKELETAL: Extremities without clubbing, cyanosis, or edema. No obvious deformities. NEUROLOGICAL: Awake and alert. Poor recollection of medical history impaired short-term memory no aphasia, fluent articulate, No facial asymmetry, OU 3-2mm, eomi, VFF, No drift, Motor grossly within normal limits. Five out of 5 muscle strength in the arms and legs. Tone normal in all 4 limbs, Sensory normal in all 4 extremities to pin, msr 1-2+ sym, no clonus, planterflexor, PSYCHIATRIC: Calm - Constitutional no acute distress - Routine HEENT Exam Head: Present: normocephalic Results - Labs CBC & Chem 7: 07/19/18 09:04 08/03/18 06:24 Labs: Laboratory Results - last 24 hr 08/02/18 08/03/18 08/03/18 20:41 06:24 07:45 Sodium 141 Potassium 4.2 Chloride 104 Carbon Dioxide 27.6 Anion Gap 9 BUN 25 H Creatinine 1.12 Estimated GFR 64 L POC Glucose 156 H 123 H Random Glucose 117 H Calcium 10.1 Total Bilirubin 0.5 AST 19 ALT 19 Alkaline Phosphatase 84 Total Protein 7.8 Albumin 3.7 08/03/18 08/03/18 11:05 16:17 Sodium Potassium Chloride Carbon Dioxide Anion Gap BUN Creatinine Estimated GFR POC Glucose 221 H 158 H Random Glucose Calcium Total Bilirubin AST ALT Alkaline Phosphatase Total Protein Albumin Review/Management - Diagnosis (1) Dementia in other diseases classified elsewhere with behavioral disturbance Code(s): F02.81 - Dementia in other diseases classified elsewhere with behavioral disturbance Status: Chronic Current Visit: Yes (2) Hypertension Code(s): I10 - Essential (primary) hypertension Status: Chronic Current Visit: Yes (3) Diabetes Code(s): E11.9 - Type 2 diabetes mellitus without complications Status: Chronic Current Visit: Yes (4) Alzheimer's disease with late onset Code(s): G30.1 - Alzheimer's disease with late onset; F02.80 - Dementia in other diseases classified elsewhere without behavioral disturbance Status: Acute Current Visit: Yes - Review/Management Plan: Probable dementia of Alzheimer's type plus or minus vascular We will obtain further workup Recommendations MRI brain EEG Labs for cognitive impairment Look at starting Aricept and Namenda after above
[2018-08-03] MEDS: Meloxicam 7.5 MG Tablet PO SCH (20:19)
[2018-08-03 20:46] LABS: C-Reactive Protein 0.38 mg/dL (0.00-0.30)
[2018-08-03 21:11] LABS: Vitamin B12 252 pg/mL (193-986)
[2018-08-04] MEDS: Carvedilol 6.25 MG Tablet PO SCH ×2 (08:47→20:26)
[2018-08-04] MEDS: Insulin NovoLOG Aspart Correctional Sugar Inj SQ SCH ×4 (08:47→20:30)
[2018-08-04] MEDS: QUEtiapine 25 MG Tablet PO SCH ×2 (08:47→20:26)
[2018-08-04] MEDS: Lactic Acid (Ammonium Lactate) 12% Lotion 225 GM Bottle TOPICAL SCH ×2 (08:52→20:28)
--- NOTE | 2018-08-04 12:23 | P.PNPSY ---
Subjective Remarks: Patient seen today in day room with nurse past, chart reviewed, patient compliant medication. Patient calmer continues diffusely confused but much less perseveration on discharge and wanting to go home he is pleasant and smiling with me. For now continue treatment Review of Systems All other systems reviewed negative except as stated in HPI Mental Status Examination Appearance: Disheveled Consciousness: Alert Orientation: Person, Place ([place]) Motor Activity: Other (No motor abnormalities noted) Speech: Unremarkable Language: Other (Rambling) Fund of Knowledge: Inadequate Attention and Concentration: Inadequate Memory: Impaired Mood: Other (Calm somewhat labile and irritable) Affect: Other (Slight increased range and intensity) Thought Process & Associations: Tangential (In setting of dementia) Thought Content: Other (Poverty of thought) Hallucination Type: None Delusion Type: None Suicidal Ideation: No Suicidal Plan: No Suicidal Intention: No Homicidal Ideation: No Homicidal Plan: No Homicidal Intention: No Insight: Poor Judgment: Poor Assessment and Plan - Assessment (1) Dementia in other diseases classified elsewhere with behavioral disturbance Code(s): F02.81 - Dementia in other diseases classified elsewhere with behavioral disturbance Status: Chronic (2) Alzheimer's disease with late onset Code(s): G30.1 - Alzheimer's disease with late onset; F02.80 - Dementia in other diseases classified elsewhere without behavioral disturbance Status: Acute - Plan Plan: She remains confused demented, though his affect and behavior have softened today he is compliant with medication Justification for Continued Inpatient Stay: At this time patient would decompensate a place to a lower level of care Discharge Planning: To be determined
[2018-08-04] MEDS: TRIAMCINOLONE ACETONIDE EACH NARE SCH (13:16)
--- NOTE | 2018-08-04 15:09 | P.TTN ---
- Patient Problems Problems: 1. Discharge planning 2. Medication compliance 3. Knowledge deficit 4. Lack of coping skills - Progress Toward Goals Provider Present: Dr. Praamjit Simmons Provider Input: 08/04/18: Will meet with family, Patient is need of placement. Patient is new admission Nurse(s) Present: Sneha RN Nurse Input: Cooperative, med compliant, Sleeps well. Psychiatric Counselors Present: Dwayne Segura Jr., [facility], Other (Tiana Thacker) Psychiatric Therapist Input: 08/04/18: No insight, Stable, needs placement. Tiana- Patient is new admission Group Spec/RT/OT/BLANK Present: Adamaris Leon, [place], Jermaine Velarde, OT Group Spec/RT/OT/BLANK Input: 08/04/18: Pt will attend select group activities. Cooperative and is appropriate. Patient is new admission - Discharge Plan Pt is expected to return home with spouse when pt is stabilized. - Documentation Scribe: Jermaien Velarde, MS, OTR Teaching Recipient: Patient
[2018-08-04] MEDS: Meloxicam 7.5 MG Tablet PO SCH (20:27)
--- NOTE | 2018-08-04 21:34 | MG ---
cc: Pablo Bourne MD, PhD EEG NUMBER: [id number] TECHNIQUE: A 17-channel EEG. DESCRIPTION: The background rhythm is symmetrical alpha rhythm with a frequency of roughly 8-9 Hz. Amplitude 10-20 microvolts. During drowsiness, there is mild slowing in the theta range. Occasional muscle artifact identified. There are no epileptiform discharges. There are no lateralizing features. Hyperventilation was not performed. Photic stimulation was done with a well-developed symmetrical driving response. INTERPRETATION: Normal electroencephalogram. Pablo Bourne MD, PhD STEVE/deisi , 08:55 PM , 08:58 PM
[2018-08-05] MEDS: Insulin NovoLOG Aspart Correctional Sugar Inj SQ SCH ×4 (07:54→22:48)
[2018-08-05] MEDS: QUEtiapine 25 MG Tablet PO SCH ×2 (09:12→20:23)
[2018-08-05] MEDS: Carvedilol 6.25 MG Tablet PO SCH ×2 (09:15→20:24)
[2018-08-05] MEDS: Lactic Acid (Ammonium Lactate) 12% Lotion 225 GM Bottle TOPICAL SCH ×2 (09:16→22:48)
--- NOTE | 2018-08-05 11:57 | XR ---
EXAM DATE: 08/05/2018 12:00 AM EDT AGE/SEX: 72 years / Male INDICATIONS: Clear for MRI CLINICAL DATA: This is the patient's initial encounter. Patient reports that signs and symptoms have been present for 1 day and indicates a pain score of Nonresponsive. MEDICAL/SURGICAL HISTORY: Non-responsive. CABG. COMPARISON: No prior exams available for comparison. FINDINGS: The abdominal bowel gas pattern is normal. No abnormal masses, calcifications, or organomegaly is s een. The osseous structures are unremarkable. Patient status post sternotomy. There are several smal l surgical kye project over the left upper abdomen. CONCLUSION: Unremarkable examination. Patient is cleared for MRI. Electronically signed by: Eduin Montenegro MD 08/05/2018 11:56 AM EDT
--- NOTE | 2018-08-05 12:43 | MR ---
EXAM DATE: 08/05/2018 11:56 AM EDT AGE/SEX: 72 years / Male INDICATIONS: Altered mental status. Multiple falls and head injury. CLINICAL DATA: This is the patient's subsequent encounter. Patient reports that signs and symptoms h ave been present for 3 weeks and indicates a pain score of 0/10. MEDICAL/SURGICAL HISTORY: Diabetes mellitus type II. CAD, CVA CABG. COMPARISON: No prior exams available for comparison. TECHNIQUE: Multiplanar, multisequence examination of the brain was performed without contrast. FINDINGS: Cerebrum: The ventricles are normal for age with diffuse atrophic change. No evidence of midline natacha ft, mass lesion, hemorrhage or acute infarction. No extraaxial fluid collections are seen. The pitu itary gland and suprasellar cistern are normal in configuration. White Matter: No significant signal abnormalities are seen in the white matter. Posterior Fossa: The cerebellum and brainstem are intact. The 4th ventricle is midline. The cerebel lopontine angle is unremarkable. The cerebellar tonsils are normal in position. Diffusion Imaging: No focal areas of restricted diffusion are seen. No evidence of acute infarction . Extracranial: The visualized portions of the orbits and paranasal sinuses are unremarkable. CONCLUSION: 1. No acute hemorrhage, mass or infarction. 2. Atrophy and chronic small vessel ischemic change. Electronically signed by: Eduin Montenegro MD 08/05/2018 12:41 PM EDT
--- NOTE | 2018-08-05 13:07 | P.PNPSY ---
Subjective Remarks: Patient seen in day room with RN. Chart reviewed. Patient compliant medication. Patient continues diffusely confused, though pleasant with me today and no behavior problems. The perseveration related to his requesting to go home continues decreased. For now continue treatment Review of Systems All other systems reviewed negative except as stated in HPI Mental Status Examination Appearance: Disheveled Consciousness: Alert Orientation: Person, Place ([place]) Motor Activity: Other (No motor abnormalities noted) Speech: Unremarkable Language: Other (Rambling) Fund of Knowledge: Inadequate Attention and Concentration: Inadequate Memory: Impaired Mood: Other (Calm somewhat labile and irritable) Affect: Other (Slight increased range and intensity) Thought Process & Associations: Tangential (In setting of dementia) Thought Content: Other (Poverty of thought) Hallucination Type: None Delusion Type: None Suicidal Ideation: No Suicidal Plan: No Suicidal Intention: No Homicidal Ideation: No Homicidal Plan: No Homicidal Intention: No Insight: Poor Judgment: Poor Assessment and Plan - Assessment (1) Dementia in other diseases classified elsewhere with behavioral disturbance Code(s): F02.81 - Dementia in other diseases classified elsewhere with behavioral disturbance Status: Chronic (2) Alzheimer's disease with late onset Code(s): G30.1 - Alzheimer's disease with late onset; F02.80 - Dementia in other diseases classified elsewhere without behavioral disturbance Status: Acute - Plan Plan: Patient remains demented and confused, though no significant behavioral problems at this time, compliant with medications Justification for Continued Inpatient Stay: At this time patient would decompensate a place to a lower level of care Discharge Planning: To be determined
[2018-08-05] MEDS: Meloxicam 7.5 MG Tablet PO SCH (20:24)
--- NOTE | 2018-08-06 08:22 | P.PNNEU ---
Subjective Subjective Comments: No cp, no dyspnea, no mart, no focal weakness, no vision loss Active Medications: Active Medications Acetaminophen (Tylenol) 650 mg PO Q4H PRN PRN Reason: Pain 1-5 or Temp >101F Last Admin: 08/02/18 00:57 Dose: 650 mg Al Hydrox/Mg Hydrox/Simethicone (Mag-Al Plus Susp Liq) 30 ml PO Q6H PRN PRN Reason: DYSPEPSIA Al Hydroxide/Mg Hydroxide (Milk Of Magnesia Liq) 30 ml PO Q12H PRN PRN Reason: Mild Constipation Aspirin (Ecotrin) 81 mg PO HS [facility] Last Admin: 08/05/18 20:24 Dose: 81 mg Atorvastatin Calcium (Lipitor) 80 mg PO HS [facility] Last Admin: 08/05/18 20:24 Dose: 80 mg Carvedilol (Coreg) 6.25 mg PO BID [facility] Last Admin: 08/05/18 20:24 Dose: 6.25 mg Clonidine HCl (Catapres) 0.1 mg PO Q6H PRN PRN Reason: SBP>180, DBP>95 Dextrose (D50w Vial) 50 ml IV.PUSH UNSCH PRN PRN Reason: PER HYPOGLYCEMIA PROTOCOL Diphenhydramine HCl (Benadryl) 50 mg PO HS PRN PRN Reason: INSOMNIA Last Admin: 08/02/18 00:57 Dose: 50 mg Enalapril Maleate (Vasotec) 5 mg PO DAILY [facility] Last Admin: 08/05/18 09:12 Dose: 5 mg Fluticasone Propionate (Flonase Nasal [place]) 2 spray EACH NARE DAILY [facility] Last Admin: 08/05/18 09:10 Dose: 2 spray Glucagon (Glucagon Inj) 1 mg OTHER UNSCH PRN PRN Reason: for Hypoglycemia Protocol Hydroxyzine HCl (Atarax) 50 mg PO Q6H PRN PRN Reason: ANXIETY Last Admin: 08/01/18 20:49 Dose: 50 mg Insulin Aspart (Novolog Insulin [place] Sugar Inj) 0 unit SQ ACHS [facility]; Protocol Last Admin: 08/05/18 22:48 Dose: Not Given Insulin Human Isoph/Insulin Regular (Novolin 70/30 Inj) 22 units SQ BID@0800, 1700 [facility] Last Admin: 08/05/18 16:55 Dose: 22 units Lactic Acid (Lac-Hydrin 12% Lotion) 1 applicatio TOPICAL BID [facility] Last Admin: 08/05/18 22:48 Dose: Not Given Meloxicam (Mobic) 7.5 mg PO HS [facility] Last Admin: 08/05/18 20:24 Dose: 7.5 mg Metformin HCl (Glucophage) 1,000 mg PO BID [facility] Last Admin: 08/05/18 20:24 Dose: 1,000 mg Pantoprazole Sodium (Protonix) 40 mg PO DAILY [facility] Last Admin: 08/05/18 09:14 Dose: 40 mg Pt Own Med: Insulin Degludec (Tresiba Flextouch) 0 each SQ DAILY [facility] Pt Own Med: Semaglutide (Ozempic ) 0 each SQ WEEKLY [facility] Quetiapine Fumarate (Seroquel) 50 mg PO BID [facility] Last Admin: 08/05/18 20:23 Dose: 50 mg Allergies/Adverse Reactions: Allergies Allergy/AdvReac Type Severity Reaction Status Date / Time No Known Allergies Allergy Verified 07/18/18 13:43 Review of Systems All other systems reviewed negative except as stated in HPI Physical Exam Vital signs: Vital Signs 08/05/18 18:51 08/06/18 05:19 Temperature 97.2 F L 97.6 F Pulse Rate 77 88 Respiratory Rate 18 16 Blood Pressure 126/69 129/70 Pulse Oximetry 96 97 Intake & Output 08/05/18 08/06/18 08/06/18 18:59 06:59 18:59 Intake Total 2180 / 2180 460 / 460 Balance 2180 / 2180 460 / 460 Intake: Oral 2180 / 2180 360 / 360 Oral Supplement 100 / 100 Other: # Voids 3 2 # Bowel Movements 0 Narrative: GENERAL: in NAD, SKIN: Warm and dry. HEAD: Atraumatic. Normocephalic. EYES: Pupils equal and round. No scleral icterus. ENT: No nasal bleeding or discharge. Mucous membranes pink and moist. NECK: Trachea midline. No JVD. CARDIOVASCULAR: Regular rate and rhythm. RESPIRATORY: No accessory muscle use. GASTROINTESTINAL: Abdomen soft, non-tender, nondistended. MUSCULOSKELETAL: Extremities without clubbing, cyanosis, or edema. No obvious deformities. NEUROLOGICAL: Awake and alert. Sitting up eating breakfast oriented 1-2, not to date month or year. Impaired short-term memory no aphasia, fluent articulate , No facial asymmetry, OU 3-2mm, eomi, VFF, No drift, Motor grossly within normal limits. Five out of 5 muscle strength in the arms and legs. Tone normal in all 4 limbs, Sensory normal in all 4 extremities to pin, msr 1-2+ sym, no clonus, planterflexor, PSYCHIATRIC: Calm pleasant - Constitutional no acute distress - Routine HEENT Exam Head: Present: normocephalic Eye: Present: EOMI Objective Laboratory Results - last 24 hr 08/05/18 08/05/18 08/05/18 11:31 16:30 20:23 POC Glucose 282 H 112 H 128 H 08/06/18 07:20 POC Glucose 142 H Review/Management - Diagnosis (1) Dementia in other diseases classified elsewhere with behavioral disturbance Code(s): F02.81 - Dementia in other diseases classified elsewhere with behavioral disturbance Status: Chronic Current Visit: Yes (2) Hypertension Code(s): I10 - Essential (primary) hypertension Status: Chronic Current Visit: Yes (3) Diabetes Code(s): E11.9 - Type 2 diabetes mellitus without complications Status: Chronic Current Visit: Yes (4) Alzheimer's disease with late onset Code(s): G30.1 - Alzheimer's disease with late onset; F02.80 - Dementia in other diseases classified elsewhere without behavioral disturbance Status: Acute Current Visit: Yes - Review/Management Plan: Probable dementia of the Alzheimer's type Recommendations MRI brain; shows atrophy no acute stroke, small vessel disease EEG; no seizure activity We will start Aricept Behavioral modification and risk factor reduction. Weight loss, blood pressure control, blood sugar control, lipid control. Exercise
[2018-08-06] MEDS: Insulin NovoLOG Aspart Correctional Sugar Inj SQ SCH ×5 (08:46→20:43)
[2018-08-06] MEDS: Carvedilol 6.25 MG Tablet PO SCH ×2 (08:48→20:42)
[2018-08-06] MEDS: QUEtiapine 25 MG Tablet PO SCH ×2 (08:48→20:42)
[2018-08-06] MEDS: Lactic Acid (Ammonium Lactate) 12% Lotion 225 GM Bottle TOPICAL SCH ×2 (08:49→20:55)
--- NOTE | 2018-08-06 12:05 | P.PNPSY ---
Subjective Remarks: Patient seen in day room with nurse Birdie and medical student Kelli, chart reviewed, patient compliant medication, neurology's consult reviewed and appreciated and agreed with. Patient sitting calmly in the dayroom he is pleasant with me continues diffusely confused with marked decrease in his perseveration about discharge and wanting to go home. For now continue treatment Review of Systems All other systems reviewed negative except as stated in HPI Mental Status Examination Appearance: Disheveled Consciousness: Alert Orientation: Person, Place ([place]) Motor Activity: Other (No motor abnormalities noted) Speech: Unremarkable Language: Other (Rambling) Fund of Knowledge: Inadequate Attention and Concentration: Inadequate Memory: Impaired Mood: Other (Calm somewhat labile and irritable) Affect: Other (Slight increased range and intensity) Thought Process & Associations: Tangential (In setting of dementia) Thought Content: Other (Poverty of thought) Hallucination Type: None Delusion Type: None Suicidal Ideation: No Suicidal Plan: No Suicidal Intention: No Homicidal Ideation: No Homicidal Plan: No Homicidal Intention: No Insight: Poor Judgment: Poor Assessment and Plan - Assessment (1) Dementia in other diseases classified elsewhere with behavioral disturbance Code(s): F02.81 - Dementia in other diseases classified elsewhere with behavioral disturbance Status: Chronic (2) Alzheimer's disease with late onset Code(s): G30.1 - Alzheimer's disease with late onset; F02.80 - Dementia in other diseases classified elsewhere without behavioral disturbance Status: Acute - Plan Plan: Continues demented and confused though calmer more appropriate and pleasant Justification for Continued Inpatient Stay: At this time patient would decompensate a place to a lower level of care Discharge Planning: Roc
[2018-08-06] MEDS: Meloxicam 7.5 MG Tablet PO SCH (20:43)
[2018-08-07] MEDS: Insulin NovoLOG Aspart Correctional Sugar Inj SQ SCH ×4 (07:51→21:25)
[2018-08-07] MEDS: Carvedilol 6.25 MG Tablet PO SCH ×2 (08:57→20:39)
[2018-08-07] MEDS: QUEtiapine 25 MG Tablet PO SCH ×2 (08:57→20:39)
[2018-08-07] MEDS: Lactic Acid (Ammonium Lactate) 12% Lotion 225 GM Bottle TOPICAL SCH ×2 (09:03→20:40)
--- NOTE | 2018-08-07 12:23 | P.PNPSY ---
Subjective Remarks: Reviewed electronic medical records and discussed case with staff. Follow-up was conducted in the day room. Patient is extremely discharge focused. He reports that he slept all right last night. States that he is appetite's been good. And that his mood has been "okay to Good". He just keeps repeating that he wants to go home. Mental Status Examination Appearance: Disheveled Consciousness: Alert Orientation: Person, Place ([place]) Motor Activity: Other (No motor abnormalities noted) Speech: Unremarkable Language: Other (Rambling) Fund of Knowledge: Inadequate Attention and Concentration: Inadequate Memory: Impaired Mood: Other (Calm somewhat labile and irritable) Affect: Other (Slight increased range and intensity) Thought Process & Associations: Tangential (In setting of dementia) Thought Content: Other (Poverty of thought) Hallucination Type: None Delusion Type: None Suicidal Ideation: No Suicidal Plan: No Suicidal Intention: No Homicidal Ideation: No Homicidal Plan: No Homicidal Intention: No Insight: Poor Judgment: Poor Assessment and Plan - Assessment (1) Dementia in other diseases classified elsewhere with behavioral disturbance Code(s): F02.81 - Dementia in other diseases classified elsewhere with behavioral disturbance Status: Chronic - Plan Plan: Patient will be reevaluated Thursday by the attending psychiatrist. Continue with current treatment plan. Justification for Continued Inpatient Stay: Moving this patient to a less restrictive environment would likely result in decompensation.
[2018-08-07] MEDS: Meloxicam 7.5 MG Tablet PO SCH (20:39)
[2018-08-08] MEDS: Insulin NovoLOG Aspart Correctional Sugar Inj SQ SCH ×3 (07:55→17:11)
[2018-08-08] MEDS: Carvedilol 6.25 MG Tablet PO SCH ×2 (09:41→21:25)
[2018-08-08] MEDS: QUEtiapine 25 MG Tablet PO SCH ×2 (09:41→21:25)
[2018-08-08] MEDS: Lactic Acid (Ammonium Lactate) 12% Lotion 225 GM Bottle TOPICAL SCH ×2 (09:41→21:28)
--- NOTE | 2018-08-08 10:47 | P.PNPSY ---
Subjective Remarks: Reviewed electronic medical records and discussed case with staff. Follow-up was conducted in the day room. Patient states that he did not sleep well. But reports that his appetite's been good. He states that he feels "all right". He continues to remain discharge focused and diffusely confused. Mental Status Examination Appearance: Disheveled Consciousness: Alert Orientation: Person, Place ([place]) Motor Activity: Other (No motor abnormalities noted) Speech: Unremarkable Language: Other (Rambling) Fund of Knowledge: Inadequate Attention and Concentration: Inadequate Memory: Impaired Mood: Other (Calm somewhat labile and irritable) Affect: Other (Slight increased range and intensity) Thought Process & Associations: Tangential (In setting of dementia) Thought Content: Other (Poverty of thought) Hallucination Type: None Delusion Type: None Suicidal Ideation: No Suicidal Plan: No Suicidal Intention: No Homicidal Ideation: No Homicidal Plan: No Homicidal Intention: No Insight: Poor Judgment: Poor Assessment and Plan - Assessment (1) Dementia in other diseases classified elsewhere with behavioral disturbance Code(s): F02.81 - Dementia in other diseases classified elsewhere with behavioral disturbance Status: Chronic - Plan Plan: Patient will be reevaluated Thursday by the attending psychiatrist. Continue with current treatment plan. Justification for Continued Inpatient Stay: Moving this patient to a less restrictive environment would likely result in decompensation.
[2018-08-08] MEDS: Meloxicam 7.5 MG Tablet PO SCH (21:27)
[2018-08-09] MEDS: Insulin NovoLOG Aspart Correctional Sugar Inj SQ SCH ×5 (00:39→21:22)
[2018-08-09] MEDS: Carvedilol 6.25 MG Tablet PO SCH ×2 (09:03→20:16)
[2018-08-09] MEDS: QUEtiapine 25 MG Tablet PO SCH ×2 (09:03→20:16)
[2018-08-09] MEDS: Lactic Acid (Ammonium Lactate) 12% Lotion 225 GM Bottle TOPICAL SCH ×2 (09:04→21:25)
--- NOTE | 2018-08-09 12:21 | P.PNPSY ---
Subjective Remarks: Met with patient's and what appears to be 2 adult children. We discussed diagnosis behavior discharge recommendation placement recommendations. Family is willing to have patient come home. Though their expectations may be somewhat unrealistic. Patient has been compliant with his medications and has shown no behavior here and is slowly making plans to get proper insurability to find an appropriate placement. is having some medical issues. They are willing to have patient come home with them on Thursday. Discussed this with patient also advised patient of his need to show self- control at home with his behavior and with his language. He appeared willing to do this we will reinforce these instructions over the next 2 days Review of Systems All other systems reviewed negative except as stated in HPI Mental Status Examination Appearance: Disheveled Consciousness: Alert Orientation: Person, Place ([place]) Motor Activity: Other (No motor abnormalities noted) Speech: Unremarkable Language: Other (Rambling) Fund of Knowledge: Inadequate Attention and Concentration: Inadequate Memory: Impaired Mood: Other (Calm somewhat labile and irritable) Affect: Other (Slight increased range and intensity) Thought Process & Associations: Tangential (In setting of dementia) Thought Content: Other (Poverty of thought) Hallucination Type: None Delusion Type: None Suicidal Ideation: No Suicidal Plan: No Suicidal Intention: No Homicidal Ideation: No Homicidal Plan: No Homicidal Intention: No Insight: Poor Judgment: Poor Assessment and Plan - Assessment (1) Dementia in other diseases classified elsewhere with behavioral disturbance Code(s): F02.81 - Dementia in other diseases classified elsewhere with behavioral disturbance Status: Chronic (2) Alzheimer's disease with late onset Code(s): G30.1 - Alzheimer's disease with late onset; F02.80 - Dementia in other diseases classified elsewhere without behavioral disturbance Status: Acute - Plan Plan: Patient remains demented and confused the low significant behavioral problems here. Plan is to discharge patient to family on 08/11 they will continue to make arrangements for possible placement in the near future Justification for Continued Inpatient Stay: Patient to be discharged on 08/11 Discharge Planning: Discharge home on 08/11
--- NOTE | 2018-08-09 15:05 | P.TTN ---
- Patient Problems Problems: 1. Discharge planning 2. Medication compliance 3. Knowledge deficit 4. Lack of coping skills - Progress Toward Goals Provider Present: Dr. Paramjit Simmons (August 09, 2018 patient meets criteria for discharge, family meeting today to reaffirm the patient will return home at this time.) Provider Input: 08/04/18: Will meet with family, Patient is need of placement. Patient is new admission Nurse(s) Present: Sneha RN Nurse Input: Cooperative, med compliant, Sleeps well. Psychiatric Counselors Present: Dwayne Segura Jr., [facility] (August 09, 2018, family meeting this morning with Cat You clinical coordinator, Dr. Simmons, and counselor Dwayne to confirm discharge plan. Family meeting took place and the agreed to take the patient home on Thursday, August 11, 2018.), Other (Tiana Thacker) Psychiatric Therapist Input: 08/04/18: No insight, Stable, needs placement. Tiana- Patient is new admission Group Spec/RT/OT/BLANK Present: CHARBEL Mccurdy, ABHAY Su ( August 09, 2018 patient attends select groups.), Jermaine Velarde OT Group Spec/RT/OT/BLANK Input: 08/04/18: Pt will attend select group activities. Cooperative and is appropriate. Patient is new admission - Discharge Plan Pt is expected to return home with spouse when pt is stabilized. - Documentation Scribe: Jermaine Velarde MS, OTR Teaching Recipient: Patient
[2018-08-09] MEDS: Meloxicam 7.5 MG Tablet PO SCH (20:16)
[2018-08-10 05:59] VITALS: RESP 16
[2018-08-10] MEDS: Carvedilol 6.25 MG Tablet PO SCH ×2 (08:47→20:36)
[2018-08-10] MEDS: QUEtiapine 25 MG Tablet PO SCH ×2 (08:47→20:35)
[2018-08-10] MEDS: Lactic Acid (Ammonium Lactate) 12% Lotion 225 GM Bottle TOPICAL SCH ×2 (08:47→20:36)
[2018-08-10] MEDS: Insulin NovoLOG Aspart Correctional Sugar Inj SQ SCH ×4 (08:50→21:40)
--- NOTE | 2018-08-10 09:23 | P.PNPSY ---
Subjective Remarks: Patient seen in day room with medical students Kelli and Boni, chart reviewed , patient compliant medication. Patient calm low behavioral problems continues diffusely confused. Is excited about the possible discharge tomorrow to his family. For now continue treatment Review of Systems All other systems reviewed negative except as stated in HPI Mental Status Examination Appearance: Disheveled Consciousness: Alert Orientation: Person, Place ([place]) Motor Activity: Other (No motor abnormalities noted) Speech: Unremarkable Language: Other (Rambling) Fund of Knowledge: Inadequate Attention and Concentration: Inadequate Memory: Impaired Mood: Other (Calm somewhat labile and irritable) Affect: Other (Slight increased range and intensity) Thought Process & Associations: Tangential (In setting of dementia) Thought Content: Other (Poverty of thought) Hallucination Type: None Delusion Type: None Suicidal Ideation: No Suicidal Plan: No Suicidal Intention: No Homicidal Ideation: No Homicidal Plan: No Homicidal Intention: No Insight: Poor Judgment: Poor Assessment and Plan - Assessment (1) Dementia in other diseases classified elsewhere with behavioral disturbance Code(s): F02.81 - Dementia in other diseases classified elsewhere with behavioral disturbance Status: Chronic (2) Alzheimer's disease with late onset Code(s): G30.1 - Alzheimer's disease with late onset; F02.80 - Dementia in other diseases classified elsewhere without behavioral disturbance Status: Acute - Plan Plan: Patient continues diffusely confused and demented though no behavior problems at this time. For now continue treatment. Consider possible discharge to family tomorrow Justification for Continued Inpatient Stay: At this time patient would decompensate a place to a lower level of care Discharge Planning: To be determined
[2018-08-10] MEDS: Meloxicam 7.5 MG Tablet PO SCH (21:39)
[2018-08-11 06:07] VITALS: BP 91/50; PULSE 78; TEMP 98.4; O2SAT 98
[2018-08-11] MEDS: QUEtiapine 25 MG Tablet PO SCH (08:31)
[2018-08-11] MEDS: Carvedilol 6.25 MG Tablet PO SCH (08:31)
[2018-08-11] MEDS: Lactic Acid (Ammonium Lactate) 12% Lotion 225 GM Bottle TOPICAL SCH (09:49)
[2018-08-11] MEDS: Insulin NovoLOG Aspart Correctional Sugar Inj SQ SCH ×2 (09:50→12:10)
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
== END 2018-08-11 13:40 | disposition home or self-care (01) ==
LOC: NEPD 12:22 → NEDA 21:27 → EDBD 21:27 → H250 22:25
PROVIDERS: ADMIT Psychiatry & Neurology Psychiatry; ATTEND Psychiatry & Neurology Psychiatry